=== PATIENT | male | born 1945 | race Caucasian/White ===

== ENCOUNTER 2020-12-09 02:08 | Inpatient (IN) | payer OTHER, BC, SELFPAY ==
--- NOTE | 2019-12-20 20:30 | NUR ---
Patient received in bed, sedated and ventilated. report received at bedside from Zeferino. PICC line, peripheral line and huff are patent. reviewed current orders to carry out.
[~2020-12-09] VITALS: Ht 177.8 cm; Wt 74.8 kg
--- NOTE | 2020-12-09 02:14 | NUR ---
ER at bedside examining patient.
--- NOTE | 2020-12-09 02:14 | NUR ---
Patient BIB ALS/EMS from [facility]. C/O shortness of breath x today. Per reported, patient had shortness of breath and test positive Covid -19 (unknown date), Oxygen sat 80 % RA, place mask -Non rebreather 15 L/Min -oxygen sat over 93-94 % , BS 441. A/O,X1, generalized weakness, oxygen sat 94 % with Non-rebreather 15 L/min, HR 96, RR 32.
--- NOTE | 2020-12-09 02:14 | NUR ---
Patient to ER bed 3 to gown for evaluation. Side rails up.
[2020-12-09 02:15] VITALS: BP_SYST 119
--- NOTE | 2020-12-09 02:15 | NUR ---
# 20 gauge angiocath placed to right forearm by CECILIA Vasques. Use of asceptic technique. Opsite placed over site. Blood return noted. Blood for lab drawn from site. Flushed with 10 cc of normal saline. No evidence of infiltration noted. Patient tolerated well.
--- NOTE | 2020-12-09 02:22 | NUR ---
# 16 FR Pugh catheter with use of sterile technique by CECILIA Vasques. Immediate return of 10 ml, Jayda, cloudy urine noted. Bedside drainage bag placed below level of bladder. Urine sample collected and sent to lab. Pt tolerated procedure well.
--- NOTE | 2020-12-09 02:23 | NUR ---
Swabs COVID-19 and MRSA and send to lab.
[2020-12-09 02:47] LABS: BASOPHILS % (AUTO) 0.3 % (0.0-2.0); HEMATOCRIT 39.3 % (36-54); HEMOGLOBIN 13.5 g/dL (14.0-18.0); LYMPHOCYTES # (AUTO) 0.6 K/uL (1.0-5.5); LYMPHOCYTES % (AUTO) 6.6 % (20.5-51.5); MEAN CORPUSCULAR HEMOGLOBIN 32 pg (27-31); MEAN CORPUSCULAR HGB CONC 34 % (32-36); MEAN CORPUSCULAR VOLUME 94 fL (79.0-98.0); MONOCYTES # (AUTO) 0.4 K/uL (0.0-1.0); MONOCYTES % (AUTO) 4.1 % (1.7-9.3); NEUTROPHILS # (AUTO) 7.9 K/uL (1.8-7.7); PLATELET COUNT (AUTO) 274 K/uL (130-430); WHITE BLOOD COUNT (AUTO) 8.9 K/uL (4.8-10.8)
[2020-12-09] MEDS ORDERED: INSU100V11 SQ (02:47)
[2020-12-09] MEDS ORDERED: BENA5TAB5 PO (02:47)
[2020-12-09] MEDS ORDERED: ACET325T PO (02:47)
[2020-12-09] MEDS ORDERED: SSREG SUBCUT (02:47)
[2020-12-09] MEDS ORDERED: NEU100 PO (02:47)
[2020-12-09] MEDS ORDERED: SENN8.6T19 PO (02:47)
[2020-12-09] MEDS ORDERED: ACET-73 PO (02:47)
[2020-12-09] MEDS ORDERED: MELA5TAB21 PO (02:47)
[2020-12-09] MEDS ORDERED: METF1000 PO (02:47)
[2020-12-09] MEDS ORDERED: DOCU-144 PO (02:47)
[2020-12-09] MEDS ORDERED: ASCO500T20 PO (02:47)
--- NOTE | 2020-12-09 02:48 | NUR ---
Medication reconciliation completed with information provided by facility. Any prior medication reconciliation on file was reviewed and corrected.
[2020-12-09 03:01] LABS: ANION GAP 13 (5-15); CALCIUM 9.1 mg/dL (8.4-11.0); CHLORIDE 107 mmol/L (98-107); CREATININE 1.15 mg/dL (0.55-1.30); GLUCOSE 392 mg/dL (70-99); POTASSIUM 3.4 mmol/L (3.5-5.1); SODIUM SERUM 144 mmol/L (136-145); UREA NITROGEN, BLOOD 24 mg/dL (8-21)
[2020-12-09 03:09] LABS: ALANINE AMINOTRANSFERASE 81 U/L (12-78); ALBUMIN 2.5 g/dL (3.4-4.8); ASPARTATE AMINOTRANSFERASE 64 U/L (10-37); TOTAL BILIRUBIN 0.7 mg/dL (0.0-1.0)
[2020-12-09 03:14] LABS: FIBRINOGEN 699 mg/dL (200-400)
--- NOTE | 2020-12-09 03:15 | NUR ---
Collected urine and send to lab.
[2020-12-09 03:35] LABS: BILIRUBIN,URINE NEGATIVE (NEGATIVE); BLOOD, URINE 2+ (NEGATIVE); CLARITY/URINE SL CLOUDY (CLEAR); COLOR,URINE YELLOW (YELLOW); GLUCOSE,URINE 3+ (NEGATIVE); KETONES,URINE TRACE (NEGATIVE); LEUKOCYTE ESTERASE ,URINE 1+ (NEGATIVE); NITRITE, URINE POSITIVE (NEGATIVE); PROTEIN URINE 1+ (NEGATIVE); UROBILINOGEN,URINE 0.2 (0.2-1.0)
[2020-12-09 03:36] LABS: CKMB RELATIVE INDEX 0.1 (0.0-2.9); CREATINE KINASE MB 1.2 ng/mL (0-3.6)
[2020-12-09 03:41] LABS: BACTERIA,URINE MANY /HPF (None Seen); WBC,URINE 50-80 /HPF (0-3)
[2020-12-09] MEDS ORDERED: cefTRIAXone 1 GM in D5W 50 ML IV ONE (04:15)
[2020-12-09] MEDS ORDERED: NACL 0.9% 1,000 ML IV ONE (06:00)
--- NOTE | 2020-12-09 06:07 | NUR ---
Dr. Lechuga and Nurse RN co-sign consent for CT chest with contrastm, Patient unable to sign, Patient need to hold Metformin 48 hours.
[2020-12-09] MEDS ORDERED: IOHEXOL 350 mgI/mL, 150 ML INFUS..BTL IV ONE (06:08)
--- NOTE | 2020-12-09 06:32 | NUR ---
Patient transported to radiology via gurney, accompanied by RT and RN.
[2020-12-09] MEDS ORDERED: ENOXAPARIN SODIUM 60 MG/0.6 ML SYRINGE SUBCUT ONE (07:15)
--- NOTE | 2020-12-09 07:24 | NUR ---
REPORT RECEIVED FROM CECILIA CORTES; PT RESTING COMFORTABLY IN BED; NO S/S OF DISTRESS; SAFETY PRECAUTIONS IN PLACE/MAINTAINED; WILL CONTINUE TO MONITOR; PENDING ICU BED
[2020-12-09] MEDS ORDERED: GLUCOSE (DEXTROSE) ORAL GEL -Adults PO PRN ×2 (07:30→15:30)
[2020-12-09] MEDS ORDERED: D5W 1,000 ML IV PRN ×2 (07:30→15:30)
[2020-12-09] MEDS ORDERED: DEXTROSE 50%-WATER 50 ML DISP.SYRIN IVP PRN (07:30)
--- NOTE | 2020-12-09 08:54 | NUR ---
Pt alert/confused; incontinence care provided; pt denies pain; safety precautions maintained; will continue to monitor; pending ICU bed
--- NOTE | 2020-12-09 09:33 | NUR ---
pt repositioned; no s/s of distress; safety precautions maintained; will continue to monitor; pending icu bed
--- NOTE | 2020-12-09 10:24 | NUR ---
PT RESTING COMFORTABLY; NO S/S OF DISTRESS; SAFETY PRECAUTIONS MAINTAINED; WILL CONTINUE TO MONITOR; PENDING ICU BED
--- NOTE | 2020-12-09 11:00 | NUR ---
pt sleeping; VSS
[2020-12-09] MEDS ORDERED: cefTRIAXone 1 GM VIAL ONE (11:27)
[2020-12-09] MEDS ORDERED: AZITHROMYCIN 500 MG/VIAL (ZITHROMAX) IV ONE (11:27)
[2020-12-09] MEDS: 0.45% NACL 1,000 ML IV SCH ×2 (11:43→20:35)
[2020-12-09] MEDS: AZITHROMYCIN 500 MG in NS 250 ML IV SCH (11:45)
[2020-12-09] MEDS: cefTRIAXone 1 GM in D5W 50 ML IV SCH (11:51)
[2020-12-09] MEDS: ALBUTEROL MDI INHALATION 8 GM INH INH SCH (12:00)
--- NOTE | 2020-12-09 12:07 | NUR ---
pt repositioned; no s/s of distress; safety precautions maintained; will continue to monitor; pending ICU bed
[2020-12-09] MEDS: methylPREDNISolone SOD SUCC/PF 62.5 MG/ML VIAL IVP SCH ×2 (12:12→18:54)
--- NOTE | 2020-12-09 13:00 | NUR ---
pt resting VSS
--- NOTE | 2020-12-09 14:03 | NUR ---
Reviewed ABG results with Dr. Barry & he requested that the pt be switched to HFNC @ 100% if available; if not available pt should be switched to Bipap @ 100% 11/05; RT notified; pt resting in bed; O2 sat 90% on NRB; no s/s of distress; will continue to monitor
--- NOTE | 2020-12-09 14:45 | NUR ---
UO= 1000 ML EMPTIED
--- NOTE | 2020-12-09 14:53 | NUR ---
DR PÉREZ IN TO ASSESS
--- NOTE | 2020-12-09 14:54 | NUR ---
RT SWITCH PT FROM NRB TO HHFNC WITH TEMPORARY SUPPLEMENTAL O2 VIA NRB; PT'S O2 SATS 91%; WILL CONTINUE TO MONITOR
--- NOTE | 2020-12-09 15:17 | NUR ---
pt resting; VSS
[2020-12-09] MEDS ORDERED: DEXTROSE 50% JECT 50 ML DISP.SYRIN IVP PRN (15:30)
--- NOTE | 2020-12-09 16:49 | NUR ---
pt repositioned; no s/s of distress; safety precautions maintained; will continue to monitor; pending icu bed
--- NOTE | 2020-12-09 17:35 | NUR ---
pt comfortable in bed; pt reassured; safety precautions maintained; will continue to monitor; pending ICU bed
[2020-12-09] MEDS: INSULIN REGULAR, HUMAN 100 UNITS/ML, 10 ML VIAL (humuLIN R) SUBCUT PRN (18:27)
[2020-12-09] MEDS ORDERED: INSULIN Lispro 100 UNITS/ML VIAL (humaLOG) ONE (18:38)
--- NOTE | 2020-12-09 18:46 | NUR ---
pt repositioned; no s/s of distress; safety precautions maintained; will continue to monitor; pending icu bed
--- NOTE | 2020-12-09 19:19 | NUR ---
REPORT GIVEN & CARE ENDORSED TO Micheline Lobo RN
--- NOTE | 2020-12-09 20:00 | NUR ---
PATIENT RESTING IN BED RESPONSIVE ON VERBAL. PATIENT CONFUSED. ON NASAL HIGH FLOW 100/50LITERS WITH NONREBREATHER MASK 15L. PROVIDED WITH SIPS OF WATER WITH MEDS TOLERATED. WITH ONGOING FLUID 1/2NS 75ML/HOUR.ATTENDED ALL NEEDS. FREQUENT CHECKING DONE TO MONITOR PATIENT AND ENSURED SAFETY. WILL CONTINUE TO MONITOR
[2020-12-09 20:13] VITALS: BP_SYST 127
[2020-12-09] MEDS ORDERED: ASCORBIC ACID 500 MG TABLET PO SCH (21:00)
[2020-12-09] MEDS: ENOXAPARIN SODIUM 40 MG/0.4 ML SYRINGE SUBCUT SCH (21:29)
[2020-12-09] MEDS: DOCUSATE SODIUM 100 MG CAPSULE PO SCH (21:30)
[2020-12-09] MEDS: GABAPENTIN 100 MG CAPSULE PO SCH (21:32)
[2020-12-09] MEDS: ASCORBIC ACID 500 MG TABLET PO SCH (21:33)
[2020-12-09] MEDS ORDERED: SENNOSIDES 8.6 MG TABLET ONE (21:42)
[2020-12-09 21:47] VITALS: BP_SYST 129
[2020-12-09] MEDS: SENNOSIDES 8.6 MG TABLET PO SCH (21:49)
[2020-12-09 22:35] VITALS: BP_SYST 127
[2020-12-09 23:39] VITALS: BP_SYST 130
[2020-12-10] VITALS (7 sets, daily range): BP systolic 124–136
[2020-12-10] MEDS: methylPREDNISolone SOD SUCC/PF 62.5 MG/ML VIAL IVP SCH ×4 (00:19→18:17)
[2020-12-10] MEDS: INSULIN REGULAR, HUMAN 100 UNITS/ML, 10 ML VIAL (humuLIN R) SUBCUT PRN ×6 (00:20→22:03)
[2020-12-10] MEDS: 0.45% NACL 1,000 ML IV SCH ×2 (01:00→04:10)
[2020-12-10] MEDS: ACETAMINOPHEN 650 MG SUPP.RECT RC PRN ×2 (04:06→05:07)
--- NOTE | 2020-12-10 04:21 | NUR ---
PATIENT GIVEN PARTIAL BED BATH, NOTED WITH SKIN DOSCOLORATION ON SACRAL AREA APPLIED PROTECTION. PATIENT FEBRILE MEDICATED PER JAN.STILL ON HF SAME SETTINGS. ANS SINUS TACHY 100'S ON MONITOR. WILL CONTINUE TO MONITOR
[2020-12-10 06:44] LABS: BASOPHILS % (AUTO) 0.2 % (0.0-2.0); HEMATOCRIT 38.7 % (36-54); HEMOGLOBIN 13.1 g/dL (14.0-18.0); LYMPHOCYTES # (AUTO) 0.4 K/uL (1.0-5.5); LYMPHOCYTES % (AUTO) 4.1 % (20.5-51.5); MEAN CORPUSCULAR HEMOGLOBIN 32 pg (27-31); MEAN CORPUSCULAR HGB CONC 34 % (32-36); MEAN CORPUSCULAR VOLUME 95 fL (79.0-98.0); MONOCYTES # (AUTO) 0.3 K/uL (0.0-1.0); MONOCYTES % (AUTO) 2.6 % (1.7-9.3); NEUTROPHILS # (AUTO) 9.9 K/uL (1.8-7.7); NEUTROPHILS % (AUTO) 93.1 % (40.0-70.0); PLATELET COUNT (AUTO) 350 K/uL (130-430); RED BLOOD CELL COUNT(AUTO) 4.09 MIL/uL (4.2-6.2); RED CELL DISTRIBUTION WIDTH 12.8 % (9.0-15.0); WHITE BLOOD COUNT (AUTO) 10.6 K/uL (4.8-10.8)
[2020-12-10 06:56] LABS: ANION GAP 9 (5-15); CALCIUM 8.8 mg/dL (8.4-11.0); CHLORIDE 114 mmol/L (98-107); CREATININE 1.04 mg/dL (0.55-1.30); GLUCOSE 303 mg/dL (70-99); POTASSIUM 3.5 mmol/L (3.5-5.1); SODIUM SERUM 147 mmol/L (136-145); UREA NITROGEN, BLOOD 27 mg/dL (8-21)
--- NOTE | 2020-12-10 07:20 | NUR ---
report given to matt BROOKS pt alert and oriented. denies pain Addendum: 12/10/20 at 0722 by Rogers Pickering RN patient alert and oriented to self only. still on high flow nasal cannula.
[2020-12-10] MEDS: ALBUTEROL MDI INHALATION 8 GM INH INH SCH ×3 (07:30→19:25)
--- NOTE | 2020-12-10 07:33 | NUR ---
pt resting comfortably in bed; no s/s of distress; will continue to monitor
[2020-12-10] MEDS ORDERED: INSULIN Lispro 100 UNITS/ML VIAL (humaLOG) ONE (07:49)
[2020-12-10] MEDS: FAMOTIDINE PF 20 MG/2 ML VIAL IVP SCH ×2 (09:00→21:18)
--- NOTE | 2020-12-10 09:00 | NUR ---
pt reoriented & repositioned; no s/s of distress; will continue to monitor
[2020-12-10] MEDS: DOCUSATE SODIUM 100 MG CAPSULE PO SCH ×2 (09:35→21:18)
[2020-12-10] MEDS: ASCORBIC ACID 500 MG TABLET PO SCH ×2 (09:36→21:18)
[2020-12-10] MEDS: CHOLECALCIFEROL (VITAMIN D3) 5,000 UNIT TABLET PO SCH (09:36)
[2020-12-10] MEDS: AZITHROMYCIN 500 MG in NS 250 ML IV SCH (09:37)
[2020-12-10] MEDS: cefTRIAXone 1 GM in D5W 50 ML IV SCH (09:38)
[2020-12-10] MEDS: ENOXAPARIN SODIUM 40 MG/0.4 ML SYRINGE SUBCUT SCH ×2 (09:39→21:18)
--- NOTE | 2020-12-10 12:02 | NUR ---
pt repositioned; fluids/food offered; 250 CCs emptied from huff; no s/s of distress; safety precautions maintained; will continue to monitor; pending icu bed
[2020-12-10] MEDS: lisinopriL 5 MG TABLET PO SCH (12:16)
--- NOTE | 2020-12-10 12:35 | NUR ---
SPOKE WITH DR MARIO REGARDING ABG, ORDER RECEIVED FOR BIPAP RT TO KEEP SAO2 >90
--- NOTE | 2020-12-10 12:49 | NUR ---
rt aware of changes to o2 orders and bipap if needed
--- NOTE | 2020-12-10 13:00 | NUR ---
Pt reoriented & repositioned
--- NOTE | 2020-12-10 14:34 | NUR ---
Spoke with Dr. Nicholson regarding pt's status; per Dr. Nicholson he will update the pt's orders/enter new orders for ABX coverage
--- NOTE | 2020-12-10 15:36 | NUR ---
Pt reoriented & repositioned
--- NOTE | 2020-12-10 17:49 | NUR ---
pt resting comfortably in bed; no s/s of distress; will continue to monitor
--- NOTE | 2020-12-10 18:22 | NUR ---
Dr. Nicholson paged to obtain consent for convalascent plasma from pt's next of kin/spokeperson
[2020-12-10] MEDS: PIPERACILLIN/TAZO 2.25G/DEX-IS 50 ML IV SCH (18:34)
--- NOTE | 2020-12-10 19:13 | NUR ---
Assumed care of patient at change of shift. introduced self patient, positioned for comfort and safety w/ bed to low position sr up. Currently on bipap 15/8 w/ fio2 100% pox noted at 92%. Continue to monitor. Patient resting quietly. No acute distress noted. Vital signs within normal range.
--- NOTE | 2020-12-10 19:13 | NUR ---
report given & care endorsed to CECILIA Warren
--- NOTE | 2020-12-10 21:00 | NUR ---
Patient resting quietly. No acute distress noted. Vital signs within normal range. Medicated as ordered. Will observe for any adverse reaction. No change in bipap settings. Continue to monitor
[2020-12-10] MEDS: GABAPENTIN 100 MG CAPSULE PO SCH (21:18)
[2020-12-10] MEDS: SENNOSIDES 8.6 MG TABLET PO SCH (21:18)
--- NOTE | 2020-12-11 01:00 | NUR ---
Patient resting quietly. No acute distress noted. Vital signs within normal range. Changed iv fluid bag, iv site patent and intact. continue to monitor. Will observe for any adverse reaction. No change in bipap settings. Continue to monitor
[2020-12-11] MEDS: methylPREDNISolone SOD SUCC/PF 62.5 MG/ML VIAL IVP SCH ×4 (01:42→18:01)
[2020-12-11] MEDS: PIPERACILLIN/TAZO 2.25G/DEX-IS 50 ML IV SCH ×4 (01:42→17:56)
--- NOTE | 2020-12-11 03:00 | NUR ---
Patient resting quietly. No acute distress noted. Vital signs within normal range. no change in bipap settings. continue to monitor.
[2020-12-11] MEDS ORDERED: LORazepam 2 MG/ML VIAL IVP ONE (03:15)
--- NOTE | 2020-12-11 05:35 | NUR ---
Patient resting quietly. No acute distress noted. Vital signs within normal range. No change in bipap settings, patient asleep resting comfortably at this time after being medicated w/ ativan 2mg ivp as ordered (patient continued to removed bipap mask). No adverse reaction noted. patient pox at 90-92% on fio2 100%. continue to monitor.
[2020-12-11] MEDS: INSULIN REGULAR, HUMAN 100 UNITS/ML, 10 ML VIAL (humuLIN R) SUBCUT PRN ×3 (05:57→18:02)
--- NOTE | 2020-12-11 06:00 | NUR ---
patient medicated as ordered w/ 10 units insulin sq 2nd to acck noted at 366. continue ot monitor.
[2020-12-11] MEDS: ALBUTEROL MDI INHALATION 8 GM INH INH SCH ×2 (07:20→14:45)
--- NOTE | 2020-12-11 07:32 | NUR ---
Report received from CECILIA Warren; pt sleeping; no s/s of distress; VSS; will continue to monitor
[2020-12-11 08:16] LABS: BASOPHILS % (AUTO) 0.2 % (0.0-2.0); HEMATOCRIT 37.6 % (36-54); HEMOGLOBIN 12.5 g/dL (14.0-18.0); LYMPHOCYTES # (AUTO) 0.7 K/uL (1.0-5.5); LYMPHOCYTES % (AUTO) 4.8 % (20.5-51.5); MEAN CORPUSCULAR HEMOGLOBIN 32 pg (27-31); MEAN CORPUSCULAR HGB CONC 33 % (32-36); MEAN CORPUSCULAR VOLUME 95 fL (79.0-98.0); MONOCYTES # (AUTO) 0.4 K/uL (0.0-1.0); MONOCYTES % (AUTO) 2.7 % (1.7-9.3); NEUTROPHILS # (AUTO) 12.9 K/uL (1.8-7.7); NEUTROPHILS % (AUTO) 92.3 % (40.0-70.0); PLATELET COUNT (AUTO) 385 K/uL (130-430); RED BLOOD CELL COUNT(AUTO) 3.95 MIL/uL (4.2-6.2); RED CELL DISTRIBUTION WIDTH 12.9 % (9.0-15.0)
--- NOTE | 2020-12-11 08:19 | NUR ---
Pt offered water with medications; no s/s of distress; will continue to monitor
[2020-12-11] MEDS: FAMOTIDINE PF 20 MG/2 ML VIAL IVP SCH ×2 (08:26→20:53)
[2020-12-11] MEDS: ENOXAPARIN SODIUM 40 MG/0.4 ML SYRINGE SUBCUT SCH ×2 (08:26→21:00)
[2020-12-11] MEDS: DOCUSATE SODIUM 100 MG CAPSULE PO SCH ×2 (08:26→21:00)
[2020-12-11] MEDS: ASCORBIC ACID 500 MG TABLET PO SCH ×2 (08:27→20:53)
[2020-12-11] MEDS: CHOLECALCIFEROL (VITAMIN D3) 5,000 UNIT TABLET PO SCH (08:27)
[2020-12-11] MEDS: AZITHROMYCIN 500 MG in NS 250 ML IV SCH (08:28)
[2020-12-11] MEDS: lisinopriL 5 MG TABLET PO SCH (08:28)
[2020-12-11 08:43] LABS: ALANINE AMINOTRANSFERASE 109 U/L (12-78); ALBUMIN 2.1 g/dL (3.4-4.8); ANION GAP 13 (5-15); ASPARTATE AMINOTRANSFERASE 74 U/L (10-37); CALCIUM 9.2 mg/dL (8.4-11.0); CHLORIDE 115 mmol/L (98-107); CREATININE 0.92 mg/dL (0.55-1.30); GLUCOSE 353 mg/dL (70-99); POTASSIUM 3.5 mmol/L (3.5-5.1); SODIUM SERUM 150 mmol/L (136-145); TOTAL BILIRUBIN 0.7 mg/dL (0.0-1.0); UREA NITROGEN, BLOOD 32 mg/dL (8-21)
--- NOTE | 2020-12-11 09:20 | NUR ---
pt sleeping; pt repositioned; no s/s of distress; safety precautions maintained; will continue to monitor; pending icu bed
--- NOTE | 2020-12-11 09:36 | NUR ---
Nutrition Update South Scale 14 noted. Pt admitted for acute respiratory failure. Diet: cardiac BMI: 25 kg/m2 RD to follow per nutrition care standards.
--- NOTE | 2020-12-11 09:45 | NUR ---
Hygeine care provided; complete bath, oral care, & total bed/linen change; pt tolerated well; will continue to monitor
--- NOTE | 2020-12-11 10:30 | NUR ---
Pt had an episode of desating to 60% & HR 40s; pt recovered and now sats are 88-89%; Dr. Barry paged to notify and to provide recent ABG results; waiting for call back; will continue to monitor
--- NOTE | 2020-12-11 11:30 | NUR ---
Updated Dr. Barry regarding pt's status; Bipap orders updated & settings changed by RT; pt tolerated well & sats now 90 - 91% Addendum: 12/11/20 at [email or web address] Barry advised that he will discuss Code status & Convaslecent plasma tx with daughter for consent
[2020-12-11] MEDS: 0.45% NACL 1,000 ML IV SCH (11:38)
--- NOTE | 2020-12-11 12:09 | NUR ---
Dietitian Recommendations * Recommend NPO * Consider alternative nutrition support within 1-2 days * If PO diet is indicated, consider CCHO, cardiac diet w/ Glucerna BID (ONS provides 440 kcal/day, 20 gm protein/day) OLMAN ARANDA Please refer to Nutrition Assessment for details. Addendum: 12/11/20 at [address]10 [address] Nuñez RD Amended: Links added. Addendum: 12/11/20 at 1254 by [address] Nuñez RD CORRECTION: Dietitian Recommendations * Recommend NPO * Consider alternative nutrition support within 1-2 days * If PO diet is indicated, consider CCHO, cardiac diet w/ Glucerna BID (ONS provides 440 kcal/day, 20 gm protein/day) * military source operations specialist consult OLMAN ARANDA
--- NOTE | 2020-12-11 12:10 | NUR ---
pt repositioned; no s/s of distress; safety precautions maintained; will continue to monitor; pending icu bed
--- NOTE | 2020-12-11 15:43 | NUR ---
Pt reoriented & repositioned
--- NOTE | 2020-12-11 16:43 | NUR ---
pt sleeping/resting comfortably in bed; VSS (O2 sat 90%) no s/s of distress; will continue to monitor
[2020-12-11] MEDS ORDERED: MELATONIN 3 MG TABLET PO PRN (17:30)
--- NOTE | 2020-12-11 18:17 | NUR ---
Pt restless; Pt reoriented & repositioned; VSS; will continue to monitor
[2020-12-11] MEDS ORDERED: INSULIN Lispro 100 UNITS/ML VIAL (humaLOG) ONE (18:22)
[2020-12-11 19:00] VITALS: BP_SYST 118
--- NOTE | 2020-12-11 19:15 | NUR ---
1914 REPORT RECEIVED FROM OFF-GOING NURSE. PT ALERT BUT REMAINS CONFUSED, REPORTEDLY AT BASELINE. AFEBRILE. FIDGETS WITH BIPAP BUT SOMEWHAT REDIRECTABLE. FULL FACE BIPAP AT 100% WITH 16/8, SATTING 90%.
[2020-12-11 20:00] VITALS: BP_SYST 117
[2020-12-11] MEDS: SENNOSIDES 8.6 MG TABLET PO SCH (20:52)
[2020-12-11 21:00] VITALS: BP_SYST 127
[2020-12-11] MEDS: GABAPENTIN 100 MG CAPSULE PO SCH (21:00)
[2020-12-11 22:00] VITALS: BP_SYST 114
[2020-12-11 23:00] VITALS: BP_SYST 121
[2020-12-12] VITALS (8 sets, daily range): BP systolic 112–135
--- NOTE | 2020-12-12 | NUR ---
TOLERATES WATER WITHOUT DIFFICULTY. HAS REMAINED ON FULL FACE BIPAP THROUGH THE SHIFT. INTERMITTENT PERIODS OF RESTLESSNESS. HAVE MULTIPLE EPISODES OF BRADYCARDIA, WITH RETURN TO BASELINE. BLOOD PRESSURE AND OXYGEN SATS TOLERATED HR, WHICH QUICKLY RETURNED TO BASELINE.
[2020-12-12] MEDS: 0.45% NACL 1,000 ML IV SCH (02:00)
[2020-12-12] MEDS ORDERED: INSULIN REGULAR, HUMAN 10 UNITS/0.1 ML INJ ONE ×2 (02:25→05:18)
--- NOTE | 2020-12-12 04:00 | NUR ---
RESTING QUIETLY AT PRESENT. CONTINUES TO BE ON FULL FACE BIPAP, SATTING 94% WHILE SLEEPING.
[2020-12-12] MEDS: methylPREDNISolone SOD SUCC/PF 62.5 MG/ML VIAL IVP SCH ×5 (05:20→23:30)
[2020-12-12] MEDS: PIPERACILLIN/TAZO 2.25G/DEX-IS 50 ML IV SCH ×5 (05:20→23:28)
[2020-12-12] MEDS: INSULIN REGULAR, HUMAN 100 UNITS/ML, 10 ML VIAL (humuLIN R) SUBCUT PRN ×4 (07:00→23:42)
--- NOTE | 2020-12-12 07:15 | NUR ---
signed out to oncoming nurse; sugey
--- NOTE | 2020-12-12 07:22 | NUR ---
Report received from CECILIA Guerra. Pt resting comfortably in bed, VSS, no s/s of distress; will continue to monitor
[2020-12-12 07:26] LABS: BASOPHILS % (AUTO) 0.2 % (0.0-2.0); HEMATOCRIT 38.4 % (36-54); HEMOGLOBIN 12.9 g/dL (14.0-18.0); LYMPHOCYTES # (AUTO) 0.5 K/uL (1.0-5.5); LYMPHOCYTES % (AUTO) 3.5 % (20.5-51.5); MEAN CORPUSCULAR HEMOGLOBIN 32 pg (27-31); MEAN CORPUSCULAR HGB CONC 34 % (32-36); MEAN CORPUSCULAR VOLUME 95 fL (79.0-98.0); MONOCYTES # (AUTO) 0.3 K/uL (0.0-1.0); MONOCYTES % (AUTO) 2.1 % (1.7-9.3); NEUTROPHILS # (AUTO) 12.7 K/uL (1.8-7.7); NEUTROPHILS % (AUTO) 94.2 % (40.0-70.0); PLATELET COUNT (AUTO) 401 K/uL (130-430); RED BLOOD CELL COUNT(AUTO) 4.04 MIL/uL (4.2-6.2); RED CELL DISTRIBUTION WIDTH 12.8 % (9.0-15.0); WHITE BLOOD COUNT (AUTO) 13.5 K/uL (4.8-10.8)
[2020-12-12 07:42] LABS: ALANINE AMINOTRANSFERASE 103 U/L (12-78); ALBUMIN 2.1 g/dL (3.4-4.8); ANION GAP 10 (5-15); ASPARTATE AMINOTRANSFERASE 50 U/L (10-37); CALCIUM 9.3 mg/dL (8.4-11.0); CHLORIDE 118 mmol/L (98-107); CREATININE 0.91 mg/dL (0.55-1.30); GLUCOSE 292 mg/dL (70-99); POTASSIUM 3.1 mmol/L (3.5-5.1); SODIUM SERUM 153 mmol/L (136-145); TOTAL BILIRUBIN 0.7 mg/dL (0.0-1.0); UREA NITROGEN, BLOOD 29 mg/dL (8-21)
[2020-12-12] MEDS: FAMOTIDINE PF 20 MG/2 ML VIAL IVP SCH ×2 (07:53→20:58)
[2020-12-12] MEDS: ENOXAPARIN SODIUM 40 MG/0.4 ML SYRINGE SUBCUT SCH ×2 (07:54→20:58)
[2020-12-12] MEDS: ASCORBIC ACID 500 MG TABLET PO SCH ×2 (07:56→20:57)
[2020-12-12] MEDS: lisinopriL 5 MG TABLET PO SCH (07:56)
[2020-12-12] MEDS: DOCUSATE SODIUM 100 MG CAPSULE PO SCH ×2 (07:56→20:57)
[2020-12-12] MEDS: CHOLECALCIFEROL (VITAMIN D3) 5,000 UNIT TABLET PO SCH (07:57)
[2020-12-12] MEDS: ALBUTEROL MDI INHALATION 8 GM INH INH SCH ×3 (08:08→18:53)
--- NOTE | 2020-12-12 08:11 | NUR ---
Pt repositioned & reoriented; safety precautions maintained; will continue to monitor; pending ICU bed
--- NOTE | 2020-12-12 09:16 | NUR ---
Dr. Barry updated on pt's status & notified of ABG results; PO2 47; Dr. Barry requested ED physician evalaute pt for possible intubation; Dr. Willoughby @ bedside advised that we will continue to monitor & she will notify pt's daughter to confirm code status
--- NOTE | 2020-12-12 09:30 | NUR ---
Dr. Willoughby attempted to call pt's daughter to discuss code status & consent for convalascent plasma; no answer/Dr. Willoughby [facility]
[2020-12-12] MEDS: AZITHROMYCIN 500 MG in NS 250 ML IV SCH (09:42)
--- NOTE | 2020-12-12 10:43 | NUR ---
pt sleeping; no s/s of acute distress
--- NOTE | 2020-12-12 13:08 | NUR ---
Pt reoriented & repositioned
[2020-12-12] MEDS ORDERED: INSULIN GLARGINE 100 UNITS/ML 10 ML VIAL SUBCUT ONE (14:00)
[2020-12-12] MEDS ORDERED: POTASSIUM CHLORIDE 20 MEQ TAB.PRT.SR PO ONE (15:00)
--- NOTE | 2020-12-12 15:22 | NUR ---
Pt sleeping; VSS
[2020-12-12] MEDS ORDERED: INSULIN Lispro 100 UNITS/ML VIAL (humaLOG) ONE (16:25)
[2020-12-12] MEDS: KCL 20 mEq in D5W 1000 mL 1,000 ML IV SCH (16:27)
--- NOTE | 2020-12-12 19:00 | NUR ---
RECEIVED REPORT FROM CECILIA DENIS. PT IN BED AWAKE. ABLE TO FOLLOW SIMPLE COMMANDS. ON BIPAP, TOLERATING AT THIS TIME. V/S STABLE. AFEBRILE. NO S/S OF ACUTE CARDIAC OR RESP DISTRESS NOTED. BEDREST. ALL EXTREMITIES ELEVATED & OFFLOADED. GENERALIZED SCATTERED ECCYMOSIS NOTED. SKIN COMPLEXION WNL. W/NOGUERA CATH TO GRAVITY, SECURED TO LEG & PATENT. WILL REPOSITION Q2H/PRN. SAFETY MEASURES & INTEGRITY MAINTAINED. WILL CONTINUE TO MONITOR.
--- NOTE | 2020-12-12 19:20 | NUR ---
Report given & care endorsed to [place] RN
--- NOTE | 2020-12-12 19:27 | NUR ---
700 CCs urine emptied
[2020-12-12] MEDS: GABAPENTIN 100 MG CAPSULE PO SCH (20:57)
[2020-12-12] MEDS: SENNOSIDES 8.6 MG TABLET PO SCH (20:58)
[2020-12-12] MEDS ORDERED: INSULIN NPH/REGULAR 70-30, 100 UNITS/ML, 10 ML VIAL ONE (23:42)
--- NOTE | 2020-12-13 | NUR ---
PT STABLE. NO S/S OF ACUTE DISTRESS NOTED. V/S STABLE. AFEBRILE. DENIES ANY PAIN AT THIS TIME. SAFETY MEASURES & INTEGRITY MAINTAINED. MONITORING CONTINOUSLY.
[2020-12-13] MEDS: ALBUTEROL MDI INHALATION 8 GM INH INH SCH ×7 (01:43→22:34)
--- NOTE | 2020-12-13 02:00 | NUR ---
PT STABLE. NO S/S OF ACUTE DISTRESS NOTED. RESTING IN BED AT THIS TIME. V/S STABLE. DENIES ANY PAIN. SAFETY MEASURES & INTEGRITY MAINTAINED. WILL CONTINUE TO MONITOR.
[2020-12-13] MEDS: KCL 20 mEq in D5W 1000 mL 1,000 ML IV SCH ×2 (03:24→13:15)
[2020-12-13 05:36] LABS: ALANINE AMINOTRANSFERASE 77 U/L (12-78); ANION GAP 6 (5-15); ASPARTATE AMINOTRANSFERASE 30 U/L (10-37); CALCIUM 9.2 mg/dL (8.4-11.0); CHLORIDE 119 mmol/L (98-107); CREATININE 0.89 mg/dL (0.55-1.30); GLUCOSE 300 mg/dL (70-99); POTASSIUM 3.6 mmol/L (3.5-5.1); SODIUM SERUM 155 mmol/L (136-145); TOTAL BILIRUBIN 0.6 mg/dL (0.0-1.0); UREA NITROGEN, BLOOD 24 mg/dL (8-21)
[2020-12-13 05:51] LABS: BASOPHILS % (AUTO) 0.2 % (0.0-2.0); HEMATOCRIT 38.6 % (36-54); LYMPHOCYTES # (AUTO) 0.3 K/uL (1.0-5.5); LYMPHOCYTES % (AUTO) 2.2 % (20.5-51.5); MEAN CORPUSCULAR HEMOGLOBIN 32 pg (27-31); MEAN CORPUSCULAR HGB CONC 34 % (32-36); MEAN CORPUSCULAR VOLUME 95 fL (79.0-98.0); MONOCYTES # (AUTO) 0.3 K/uL (0.0-1.0); MONOCYTES % (AUTO) 2.3 % (1.7-9.3); NEUTROPHILS # (AUTO) 11.7 K/uL (1.8-7.7); NEUTROPHILS % (AUTO) 95.3 % (40.0-70.0); PLATELET COUNT (AUTO) 393 K/uL (130-430); RED BLOOD CELL COUNT(AUTO) 4.07 MIL/uL (4.2-6.2); WHITE BLOOD COUNT (AUTO) 12.3 K/uL (4.8-10.8)
[2020-12-13] MEDS ORDERED: PIPERACILLIN/TAZOBACTAM 2.25 GM VIAL IV ONE (05:56)
--- NOTE | 2020-12-13 06:00 | NUR ---
PT STABLE. NO S/S OF DISTRESS NOTED. V/S STABLE. SAFETY MEASURES & INTEGRITY MAINTAINED. WILL CONTINUE TO MONITOR.
[2020-12-13] MEDS: INSULIN REGULAR, HUMAN 100 UNITS/ML, 10 ML VIAL (humuLIN R) SUBCUT PRN ×4 (06:18→23:35)
[2020-12-13] MEDS ORDERED: INSULIN REGULAR, HUMAN 10 UNITS/0.1 ML INJ ONE ×2 (06:18→23:31)
[2020-12-13] MEDS: PIPERACILLIN/TAZO 2.25G/DEX-IS 50 ML IV SCH ×4 (06:21→23:33)
[2020-12-13] MEDS: methylPREDNISolone SOD SUCC/PF 62.5 MG/ML VIAL IVP SCH ×4 (06:22→23:29)
--- NOTE | 2020-12-13 06:30 | NUR ---
NOGUERA CATH EMPTIED. 1200 URINE OUTPUT NOTED.
--- NOTE | 2020-12-13 07:15 | NUR ---
REPORT GIVEN TO CHAPARRITA RN FOR CONTINUITY OF CARE. LEFT PT IN STABLE CONDITION.
--- NOTE | 2020-12-13 07:36 | NUR ---
Pt resting comfortably in bed; no s/s of distress; VSS; safety precautions maintained; will continue to monitor
[2020-12-13] MEDS ORDERED: INSULIN GLARGINE 100 UNITS/ML 10 ML VIAL ONE (07:58)
[2020-12-13] MEDS: FAMOTIDINE PF 20 MG/2 ML VIAL IVP SCH ×2 (08:12→21:20)
[2020-12-13] MEDS: lisinopriL 5 MG TABLET PO SCH (08:13)
[2020-12-13] MEDS: ASCORBIC ACID 500 MG TABLET PO SCH ×2 (08:14→21:00)
[2020-12-13] MEDS: DOCUSATE SODIUM 100 MG CAPSULE PO SCH ×2 (08:14→21:00)
[2020-12-13] MEDS: CHOLECALCIFEROL (VITAMIN D3) 5,000 UNIT TABLET PO SCH (08:15)
[2020-12-13] MEDS: INSULIN GLARGINE 100 UNITS/ML 10 ML VIAL SUBCUT SCH (08:16)
[2020-12-13] MEDS: ENOXAPARIN SODIUM 40 MG/0.4 ML SYRINGE SUBCUT SCH ×2 (08:16→21:20)
--- NOTE | 2020-12-13 08:34 | NUR ---
Fluids offered; pt repositioned; VSS, pt reoriented & reassured; safety precautions maintained; will continue to monitor
--- NOTE | 2020-12-13 08:51 | NUR ---
Pt's HR 40s-50s; Dr. Coombs notified; no new orders advised to continue to monitor & call back if pt becomes hypotensive
--- NOTE | 2020-12-13 11:19 | NUR ---
PT RESTING COMFORTABLY; NO S/S OF DISTRESS; SAFETY PRECAUTIONS MAINTAINED; WILL CONTINUE TO MONITOR; PENDING ICU BED
--- NOTE | 2020-12-13 12:24 | NUR ---
resting comfortable, tolerating bipap. nsr on monitor no ectopy
--- NOTE | 2020-12-13 13:00 | NUR ---
pt repositioned & reoriented; VSS
--- NOTE | 2020-12-13 14:12 | NUR ---
pt sleeping, VSS
--- NOTE | 2020-12-13 15:30 | NUR ---
pt repositioned/turned; oral care provided; VSS
--- NOTE | 2020-12-13 16:45 | NUR ---
pt sleeping, VSS
--- NOTE | 2020-12-13 18:03 | NUR ---
Pt repositioned; 750 CCs of urine emptied from pt's huff; safety precautions maintained; VSS; WCTM; pending ICU bed
--- NOTE | 2020-12-13 19:18 | NUR ---
Received report from CECILIA Hassan.
--- NOTE | 2020-12-13 19:40 | NUR ---
RT at bedside for re-check Bipap setting.
[2020-12-13] MEDS: GABAPENTIN 100 MG CAPSULE PO SCH (21:00)
[2020-12-13] MEDS: SENNOSIDES 8.6 MG TABLET PO SCH (21:00)
[2020-12-13] MEDS ORDERED: FAMOTIDINE PF 20 MG/2 ML VIAL ONE (21:11)
--- NOTE | 2020-12-13 21:21 | NUR ---
Provided water for patient and re-position.
--- NOTE | 2020-12-13 22:27 | NUR ---
Patient resting quietly. No acute distress noted.
--- NOTE | 2020-12-13 22:46 | NUR ---
Patient removed Bipap, placed it back and re-check Oxygen sat
--- NOTE | 2020-12-14 00:12 | NUR ---
Patient sleeping, Oxygen sat 81-87 % with Bipap.
[2020-12-14] MEDS: KCL 20 mEq in D5W 1000 mL 1,000 ML IV SCH ×2 (01:01→16:47)
--- NOTE | 2020-12-14 01:01 | NUR ---
Provided water as request and re-position.
--- NOTE | 2020-12-14 02:14 | NUR ---
Provided water as request and cleaned his facial with warm towel.
--- NOTE | 2020-12-14 04:32 | NUR ---
Patient resting quietly. No acute distress noted. Oxygen sat 81-88 % with Bipap.
[2020-12-14] MEDS: methylPREDNISolone SOD SUCC/PF 62.5 MG/ML VIAL IVP SCH ×4 (05:47→23:11)
[2020-12-14] MEDS: PIPERACILLIN/TAZO 2.25G/DEX-IS 50 ML IV SCH ×4 (05:48→23:11)
--- NOTE | 2020-12-14 05:49 | NUR ---
CXR at bedside,
[2020-12-14] MEDS: ALBUTEROL MDI INHALATION 8 GM INH INH SCH ×4 (05:58→19:59)
[2020-12-14] MEDS ORDERED: INSULIN REGULAR, HUMAN 10 UNITS/0.1 ML INJ ONE ×2 (05:59→23:13)
[2020-12-14] MEDS: INSULIN REGULAR, HUMAN 100 UNITS/ML, 10 ML VIAL (humuLIN R) SUBCUT PRN ×2 (06:00→23:13)
--- NOTE | 2020-12-14 06:00 | NUR ---
BS 279, Insulin R 6 unit given as protocol, provided water for patient.
--- NOTE | 2020-12-14 06:04 | NUR ---
Empty urine bag - Jayda, clear 900 ML
--- NOTE | 2020-12-14 07:30 | NUR ---
Given report and endorse care to CECILIA Pham.
--- NOTE | 2020-12-14 08:00 | NUR ---
PT RESTING IN BED; BIPAP AT 100%; TACHYPNEA AND LABORED BREATHING NOTED. SATURATIONS MAINTAINED BETWEEN 82-86%; HOB ELEVATED FOR COMFORT. WILL CONTINUE TO MONITOR.
[2020-12-14] MEDS: ASCORBIC ACID 500 MG TABLET PO SCH ×2 (08:52→20:23)
[2020-12-14] MEDS: lisinopriL 5 MG TABLET PO SCH (08:53)
[2020-12-14] MEDS: CHOLECALCIFEROL (VITAMIN D3) 5,000 UNIT TABLET PO SCH (08:53)
[2020-12-14] MEDS: DOCUSATE SODIUM 100 MG CAPSULE PO SCH ×2 (08:54→20:23)
[2020-12-14] MEDS: INSULIN GLARGINE 100 UNITS/ML 10 ML VIAL SUBCUT SCH ×2 (09:00→09:12)
[2020-12-14] MEDS: ENOXAPARIN SODIUM 40 MG/0.4 ML SYRINGE SUBCUT SCH ×2 (09:11→20:24)
[2020-12-14] MEDS: FAMOTIDINE PF 20 MG/2 ML VIAL IVP SCH ×2 (09:14→20:23)
[2020-12-14] MEDS ORDERED: DEXAMETHASONE SOD PHOSPHATE 4 MG/ML VIAL ONE (09:24)
--- NOTE | 2020-12-14 12:31 | NUR ---
PT GIVEN WATER AND COUGHED ALONG WITH DESATURATIONS TO THE 78-80%. DR. PÉREZ MADE AWARE; MAINTAIN NPO STATUS; SPEECH SWALLOW EVAL PENDING.
--- NOTE | 2020-12-14 15:01 | NUR ---
DR. PÉREZ AT BEDSIDE EVAULUATING PATIENT AT BEDSIDE. UPDATED WITH CURRENT CLINICAL CONDITION.
--- NOTE | 2020-12-14 15:01 | NUR ---
PT TOOK OFF MASK AT DESATURATED IN THE 20'S; BIPAP PLACED ON AND RECOVERED. WILL CONTINUE TO MONITOR.
[2020-12-14 15:20] LABS: INR 1.3 (0.80-1.20); PROTHROMBIN TIME 12.8 SECS (9.5-12.5)
--- NOTE | 2020-12-14 16:05 | NUR ---
Request for transfer sent to [facility] [phone]
--- NOTE | 2020-12-14 18:08 | NUR ---
PT RESTING IN BED; NO ACUTE DISTRESS NOTED. NPO MAINTAINED FOR ASPIRATION PRECAUTION ; PENDING PICC LINE
--- NOTE | 2020-12-14 19:00 | NUR ---
RECEIVED REPORT FROM CECILIA SMITH. PT IN BED, RESTING. AAOX2. CONFUSED W/HX OF DEMENTIA. NO S/S OF CARDIAC OR RESP DISTRESS NOTED. ON BIPAP, TOLERATING SETTINGS AT THIS TIME. SATURATION 92%. V/S STABLE. AFEBRILE. ABLE TO TAYLOR. ABLE TO FOLLOW COMMANDS. INCONTIENT OF B/B. SKIN INTACT. W/NOGUERA CATH TO GRAVITY, SECURED TO LEG, & PATENT. WILL REPOSITION Q2H/PRN FOR SKIN INTEGRITY. ALL EXTREMITIES ELEVATED & OFFLOADED. CAREPLAN REVIEWED. SAFETY MEASURES & INTEGRITY MAINTAINED. WILL CONTINUE TO MONITOR.
--- NOTE | 2020-12-14 19:00 | NUR ---
NOGUERA CATH EMPTIED 900 UP
[2020-12-14] MEDS ORDERED: FAMOTIDINE PF 20 MG/2 ML VIAL ONE (20:23)
[2020-12-14] MEDS: GABAPENTIN 100 MG CAPSULE PO SCH (20:24)
--- NOTE | 2020-12-14 20:30 | NUR ---
TOOK OF BIPAP TO GIVE PT MEDS, PT DESATED DOWN TO 60'S. MD AWARE. PT REMAIN NPO AT THIS TIME. UNABLE TO TOLERATE PO. PENDING SWALLOW EVAL. WILL CONTINUE TO MONITOR.
[2020-12-14] MEDS: SENNOSIDES 8.6 MG TABLET PO SCH (20:40)
--- NOTE | 2020-12-14 22:00 | NUR ---
PT STABLE. NO ACUTE S/S OF RESP OR CARDIAC DISTRESS. RESTING IN BED AT THIS TIME. DENIES ANY PAIN. SAFETY MEASURES & INTEGRITY MAINTAINED. WILL CONTINUE TO MONITOR.
--- NOTE | 2020-12-15 | NUR ---
NO CHANGE FROM SHIFT ASSESSMENT. PT STABLE. NO S/S OF ACUTE RESP OR RESP DISTRESS NOTED. V/S STABLE. WITH LOW GRADE FEVER. COOLING MEASURES APPLIED. MONITORING CONTINUOUSLY.
--- NOTE | 2020-12-15 04:00 | NUR ---
NO CHANGE FROM SHIFT ASSESSMENT. AFEBRILE. NO S/S OF ACUTE RESP OR CARDIAC DISTRESS NOTED. V/S STABLE. SAFETY MEASURES & INTEGRITY MAINTAINED. MONITORING CONTINUOUSLY.
[2020-12-15 04:46] LABS: BASOPHILS # (AUTO) 0.2 K/uL (0.0-0.2); BASOPHILS % (AUTO) 1.3 % (0.0-2.0); EOSINOPHILS # (AUTO) 0.1 K/uL (0.0-0.4); EOSINOPHILS % (AUTO) 0.4 % (0.0-4.0); HEMATOCRIT 42.4 % (36-54); LYMPHOCYTES # (AUTO) 0.7 K/uL (1.0-5.5); LYMPHOCYTES % (AUTO) 4.6 % (20.5-51.5); MEAN CORPUSCULAR HEMOGLOBIN 31 pg (27-31); MEAN CORPUSCULAR HGB CONC 33 % (32-36); MEAN CORPUSCULAR VOLUME 95 fL (79.0-98.0); MONOCYTES # (AUTO) 0.1 K/uL (0.0-1.0); MONOCYTES % (AUTO) 0.4 % (1.7-9.3); NEUTROPHILS # (AUTO) 14.1 K/uL (1.8-7.7); NEUTROPHILS % (AUTO) 93.3 % (40.0-70.0); PLATELET COUNT (AUTO) 320 K/uL (130-430); RED BLOOD CELL COUNT(AUTO) 4.48 MIL/uL (4.2-6.2); WHITE BLOOD COUNT (AUTO) 15.2 K/uL (4.8-10.8)
[2020-12-15] MEDS: methylPREDNISolone SOD SUCC/PF 62.5 MG/ML VIAL IVP SCH ×4 (05:03→23:54)
[2020-12-15] MEDS: PIPERACILLIN/TAZO 2.25G/DEX-IS 50 ML IV SCH ×4 (05:03→23:54)
[2020-12-15 05:05] LABS: ALANINE AMINOTRANSFERASE 53 U/L (12-78); ALBUMIN 1.8 g/dL (3.4-4.8); ANION GAP 9 (5-15); ASPARTATE AMINOTRANSFERASE 25 U/L (10-37); CALCIUM 8.7 mg/dL (8.4-11.0); CHLORIDE 117 mmol/L (98-107); GLUCOSE 255 mg/dL (70-99); PHOSPHORUS 2.3 mg/dL (2.7-4.5); POTASSIUM 3.8 mmol/L (3.5-5.1); SODIUM SERUM 153 mmol/L (136-145); TOTAL BILIRUBIN 0.7 mg/dL (0.0-1.0); UREA NITROGEN, BLOOD 21 mg/dL (8-21)
[2020-12-15] MEDS ORDERED: INSULIN REGULAR, HUMAN 10 UNITS/0.1 ML INJ ONE (05:11)
[2020-12-15] MEDS: INSULIN REGULAR, HUMAN 100 UNITS/ML, 10 ML VIAL (humuLIN R) SUBCUT PRN ×4 (05:13→23:59)
--- NOTE | 2020-12-15 06:30 | NUR ---
NOGUERA CATH EMPTIED 500 UP
--- NOTE | 2020-12-15 07:00 | NUR ---
REPORT GIVEN TO SARAH RN FOR CONTINUITY OF CARE. LEFT PT IN STABLE CONDITION.
[2020-12-15] MEDS: KCL 20 mEq in D5W 1000 mL 1,000 ML IV SCH ×2 (08:45→21:49)
[2020-12-15] MEDS: CHOLECALCIFEROL (VITAMIN D3) 5,000 UNIT TABLET PO SCH (08:46)
[2020-12-15] MEDS: ASCORBIC ACID 500 MG TABLET PO SCH ×2 (08:46→20:19)
[2020-12-15] MEDS: FAMOTIDINE PF 20 MG/2 ML VIAL IVP SCH ×2 (08:48→20:19)
[2020-12-15] MEDS: DOCUSATE SODIUM 100 MG CAPSULE PO SCH ×2 (08:48→20:19)
[2020-12-15] MEDS: lisinopriL 5 MG TABLET PO SCH (08:48)
--- NOTE | 2020-12-15 08:49 | NUR ---
PT RECEIVED; NO ACUTE DISTRESS NOTED. ON BIPAP FIO2 100% SATURATING 85-88%; REPOSITION FOR COMFORT
[2020-12-15] MEDS ORDERED: INSULIN GLARGINE 100 UNITS/ML 10 ML VIAL ONE (09:00)
[2020-12-15] MEDS: INSULIN GLARGINE 100 UNITS/ML 10 ML VIAL SUBCUT SCH (09:30)
[2020-12-15] MEDS: ENOXAPARIN SODIUM 40 MG/0.4 ML SYRINGE SUBCUT SCH ×2 (10:02→20:27)
--- NOTE | 2020-12-15 11:27 | NUR ---
PT REPOSITIONED FOR COMFORT. NPO MAINTAINED RISK FOR ASPIRATION; PENDING SWALLOW EVALUATION; PENDING PICC LINE (CALL PLACED OUT AGAIN TODAY); SATURATIONS MAINTAINED BETWEEN 85-87%; NO CHANGES FROM PREVIOUS BASELINE
[2020-12-15] MEDS: ALBUTEROL MDI INHALATION 8 GM INH INH SCH (12:00)
[2020-12-15 15:18] VITALS: BP_SYST 105
--- NOTE | 2020-12-15 17:12 | NUR ---
S.T. SWALLOW EVAL ATTEMPTED SWALLOW EVAL ATTEMPTED. NURSE SARAH PRESENT. PT DESATS TO 22 WHEN PT IS CHANGED FROM BIPAP TO NON-REBREATHER. PT IS NOT A CANDIDATE FOR SWALLOW EVAL AT THIS TIME. PLEASE CANCEL ORDER AND RE-ORDER WHEN RESP STATUS IMPROVES. NURSE SARAH CONCURRED.
--- NOTE | 2020-12-15 17:23 | NUR ---
PT CHLORHEXADINE BATHED; SPEECH THERAPIST AT BEDSIDE; PT INAPPROPRIATAE AT THE MOMENT TO TO SWALLOW EVAL DUE TO SATURATIONS DECREASING DOWN TO 20'S AND TACHYPNEIC; TOTAL URINE OUTPUT 500MLS FOR SHIFT. PT CURRENTLY ON BIPAP SATURATONS 88% ON FIO2 AT 100%
--- NOTE | 2020-12-15 19:00 | NUR ---
RECEIVED REPORT FROM SARAH, RN. PT IN BED ON BIPAP. NO S/S OF RESP OR CARDIAC DISTRESS NOTED. V/S STABLE. AFEBRILE. SKIN INTACT. ABLE TO MOVE BUE. WILL REPOSITION Q2H/PRN. ABLE TO FOLLOW COMMANDS. ABLE TO MAKE SIMPLE NEEDS KNOWN. INCONTINENT OF B/B. WITH NOGUERA CATH TO GRAVITY, SECURED TO LEG, & PATENT. CARE PLAN REVIEWED. SAFETY MEASURES & INTEGRITY MAINTAINED. WILL CONTINUE TO MONITOR.
[2020-12-15] MEDS: GABAPENTIN 100 MG CAPSULE PO SCH (20:19)
[2020-12-15] MEDS: SENNOSIDES 8.6 MG TABLET PO SCH (20:19)
--- NOTE | 2020-12-15 22:00 | NUR ---
PT STABLE. DENIES ANY PAIN. RESTING IN BED. REPOSITIONED. SAFETY MEASURES & INTEGRITY MAINTAINED. MONITORING CONTINUOUSLY.
--- NOTE | 2020-12-16 | NUR ---
NO CHANGE FROM SHIFT ASSESSMENT. PT STABLE. NO S/S OF DISTRESS NOTED. V/S STABLE. AFEBRILE. SAFETY MEASURES & INTEGRITY MAINTAINED. WILL CONTINUE TO MONITOR.
--- NOTE | 2020-12-16 02:00 | NUR ---
NO S/S OF DISTRESS NOTD. V/S STABLE. SAFETY MEASURES & INTEGRITY MAINTAINED. MONITORING CONTINUOUSLY.
--- NOTE | 2020-12-16 04:00 | NUR ---
NO CHANGE FROM SHIFT ASSESSMENT. PT STABLE. NO S/S OF ACUTE DISTRESS NOTED. V/S STABLE. SAFETY MEASURES & INTEGRITY MAINTAINED. WILL CONTINUE TO MONITOR.
[2020-12-16] MEDS: methylPREDNISolone SOD SUCC/PF 62.5 MG/ML VIAL IVP SCH ×3 (05:19→17:48)
[2020-12-16] MEDS: PIPERACILLIN/TAZO 2.25G/DEX-IS 50 ML IV SCH ×3 (05:19→17:48)
[2020-12-16] MEDS: INSULIN REGULAR, HUMAN 100 UNITS/ML, 10 ML VIAL (humuLIN R) SUBCUT PRN ×2 (05:20→17:23)
--- NOTE | 2020-12-16 08:23 | NUR ---
PT RECEIVED ON BIPAP FIO2 100%; NO ACUTE DISTRESS NOTED. CURRETNLY SATURATING AT 88%
[2020-12-16] MEDS: FAMOTIDINE PF 20 MG/2 ML VIAL IVP SCH ×2 (08:38→21:00)
[2020-12-16] MEDS: DOCUSATE SODIUM 100 MG CAPSULE PO SCH ×2 (08:38→21:00)
[2020-12-16] MEDS: INSULIN GLARGINE 100 UNITS/ML 10 ML VIAL SUBCUT SCH (08:38)
[2020-12-16] MEDS: lisinopriL 5 MG TABLET PO SCH (08:40)
[2020-12-16] MEDS: CHOLECALCIFEROL (VITAMIN D3) 5,000 UNIT TABLET PO SCH (08:40)
[2020-12-16] MEDS: ASCORBIC ACID 500 MG TABLET PO SCH ×2 (08:40→21:00)
[2020-12-16] MEDS: ENOXAPARIN SODIUM 40 MG/0.4 ML SYRINGE SUBCUT SCH ×2 (08:47→21:00)
[2020-12-16] MEDS: KCL 20 mEq in D5W 1000 mL 1,000 ML IV SCH (11:34)
[2020-12-16] MEDS: ALBUTEROL MDI INHALATION 8 GM INH INH SCH (13:20)
--- NOTE | 2020-12-16 14:17 | NUR ---
DR. PÉREZ AT BEDSIDE; ASKING WHY PICC LINE HASNT BEEN PLACE. MADE AWARE VISITOR SERVICES ASSISTANT WAS CONTACTED SINCE ORDER WAS PLACE AND I PERSONALLY HAVE BEEN FOLLOWING UP WITH PICC LINE. PICC STILL PENDING. PT RESTING COMFORTABLY IN BED BIPAP AT FIO2 100%
--- NOTE | 2020-12-16 14:50 | NUR ---
PICC LINE ORDER GIVEN TO MACHINE FEEDER RAW STOCK ANGELIQUE; MADE AWARE PT HASNT HAD A PICC LINE SINCE IT WAS ORDERED. WILL FOLLOW UP
--- NOTE | 2020-12-16 15:08 | NUR ---
Nutrition F/U RD reviewed pt's current EMR record including diet Hx, physician notes, nursing notes, pertinent labs/meds/procedures, care trends, and care activity. Admission Dx: Acute respiratory failure PMH: HTN, DM, dementia, DJD per physician notes Pt also found w/ COVID-19 pneumonia, sepsis, and complicated UTI per physician notes SARS-CoV-2 Ag (Rapid) Negative 12/09/20 Current Diet Order/Nutrition Support: NPO x2 days Subjective Info: Surge charting d/t high RD pt load. Per EMR review, pt was seen by ST for swallow eval 12/15/20, however, d/t pt's seemingly poor respiratory status, he is not a candidate for swallow eval at this time; plans for PICC placement. RD called ER to speak w/ pt's primary RN, but she was unavailable per community action worker. RD called healthcare specialist ([phone]); no response. Pt is not meeting nutritional needs. Pertinent Medications: lantus, KCl/D5% at 75 ml/hr (306 kcal/day), colace, solu-medrol, SSI Pertinent Labs: WBC 15.2 H, Na 153 H, BG 255 H, POC BG 166 H, CRP 14 H, ALB 1.8 L Weight (Pounds) 150 pounds -- stable, no changes since 12/11 Patient Weight 68.039 kg Skin Integrity Comment: South scale of 15 noted; previous report of skin breakdown/PI to L buttock per RN report 12/11/20 Current % PO N/A -- pt has been NPO Estimated Energy Expenditure (kcals/day) 4407-7970 kcal/day (25-30 kcal/kg CBW d/t critical care, BMI <30 kg/m2) Estimated Protein Required (g/day) 82-136 gm/day (1.2-2 gm/kg CBW d/t critical care, BMI <30 kg/m2, wound) Estimated Fluid Required (l/day) 1.7-2 L/day (1 ml/kcal/day for maintenance) Problem/Etiology/Signs/Symptoms Suboptimal nutritional intakes related to breathing difficulty and wound healing as evidenced by RN report of poor PO intakes and wound to L buttock. *ongoing Expected Outcomes/Goals *MODIFIED* - Monitor provision of nutrition support, appetite, and PO intakes w/ goal of pt meeting at least 50% of estimated nutritional needs, labs trending WNL, normal GI function, and skin integrity/wt maintenance Dietitian Recommendations * Consider alternative nutrition support (EN via NGT/OGT versus PPN to optimize gut health) * electronic commerce specialist consult Follow Up High Risk: F/U in 2-3 days
--- NOTE | 2020-12-16 15:16 | NUR ---
Dietitian Recommendations * Consider alternative nutrition support (EN via NGT/OGT versus PPN to optimize gut health) * funeral pre arrangement specialist consult LP, RD Please refer to Nutrition F/U for details.
--- NOTE | 2020-12-16 16:17 | NUR ---
UNABLE TO OBTAIN CONSENT FROM NEXT OF KIN SYLVIA COTTER (DAUGHTER); MULTIPLE ATTEMPTS HAVE BEEN MADE SINCE ADMISSION; WE WERE ALSO UNABLE TO OBTAIN CONSENT FOR CONVALESCENT PLASMA WELL SINCE ADMISSION; VOICE MESSAGE HAS BEEN LEFT FOR DAUGHTER AND NO CALL BACK. SPOKE W/DR CABELLO AND SIGNS CONSENT BECAUSE IT IS MEDICALLY NECESSARY; PT UNABLE TO SWALLOW AND HAS NOT RECEIVED NUTRITION; TPN NEEDS TO START FOR NUTRITION; PT HAS DYSPHAGIA UNABLE TO SWALLOW ON BIPAP AT HIGH SETTINGS 16/8 AT 100%; DESATURATES TO 22% WHEN OFF BIPAP. CHARISSE ACTUARIAL TECHNICIAN MADE AWARE DR. PÉREZ HAS BEEN CONTACTED FOR DOCUMENTATINO OF EMERGENCY CONSENT; DR PÉREZ STATES HE HAS DOCUMENTED IN HIS NOTES.
[2020-12-16 17:20] LABS: INR 1.5 (0.80-1.20); PROTHROMBIN TIME 15.3 SECS (9.5-12.5)
--- NOTE | 2020-12-16 18:49 | NUR ---
PICC LINE NURSE AT BEDSIDE IN ATTEMPT TO INSERT PICC; RN DROPPED INTRODUCER AND NEEDS NEW KIT; NO NEW KIT FOUND IN MEDSURGE AND ICU AREA; RETIREMENT SALES CONSULTANT CHARISSE MADE AWARE.
--- NOTE | 2020-12-16 18:53 | NUR ---
PICC LINE PLACED; PENDING CHEST XRAY
--- NOTE | 2020-12-16 18:54 | NUR ---
PT TOLERATED PROCEDURE WELL; REMAINS BASELINE VITALS. NO ACUTE DISTRESS NOTED.
[2020-12-16 19:00] VITALS: BP_SYST 115
[2020-12-16 20:00] VITALS: BP_SYST 122
--- NOTE | 2020-12-16 20:18 | NUR ---
PATIENT RECIEVED RESTING IN BED AWAKE ALERT ORIENTED x1, ON 100% BIPAP WITH O2 SAT CURRENTLY AT 84%
[2020-12-16 21:00] VITALS: BP_SYST 116
[2020-12-16] MEDS: SENNOSIDES 8.6 MG TABLET PO SCH (21:00)
[2020-12-16] MEDS: GABAPENTIN 100 MG CAPSULE PO SCH (21:00)
[2020-12-16 22:00] VITALS: BP_SYST 109
[2020-12-16 23:00] VITALS: BP_SYST 111
[2020-12-17] VITALS (24 sets, daily range): BP systolic 89–130
[2020-12-17] MEDS: KCL 20 mEq in D5W 1000 mL 1,000 ML IV SCH ×2 (01:15→14:00)
--- NOTE | 2020-12-17 04:22 | NUR ---
OBSERVED O2 SAT DECREASING ON MONITOR TO 81%, RT PAGED AND ASSISTED WITH REPOSITIONING PATIENT. PATIENT REMAINS ORIENTED NO SIGNS OF CONFUSION NOTED AND O2 SAT INCREASED TO 90% AFTER REPOSITIONING.
[2020-12-17 04:48] LABS: BASOPHILS % (AUTO) 0.1 % (0.0-2.0); HEMATOCRIT 44.3 % (36-54); HEMOGLOBIN 14.6 g/dL (14.0-18.0); LYMPHOCYTES # (AUTO) 0.4 K/uL (1.0-5.5); LYMPHOCYTES % (AUTO) 2.1 % (20.5-51.5); MEAN CORPUSCULAR HEMOGLOBIN 31 pg (27-31); MEAN CORPUSCULAR HGB CONC 33 % (32-36); MEAN CORPUSCULAR VOLUME 95 fL (79.0-98.0); MONOCYTES # (AUTO) 0.3 K/uL (0.0-1.0); MONOCYTES % (AUTO) 1.7 % (1.7-9.3); NEUTROPHILS # (AUTO) 19.1 K/uL (1.8-7.7); NEUTROPHILS % (AUTO) 96.1 % (40.0-70.0); PLATELET COUNT (AUTO) 294 K/uL (130-430); RED BLOOD CELL COUNT(AUTO) 4.65 MIL/uL (4.2-6.2); RED CELL DISTRIBUTION WIDTH 12.8 % (9.0-15.0); WHITE BLOOD COUNT (AUTO) 19.9 K/uL (4.8-10.8)
--- NOTE | 2020-12-17 06:25 | NUR ---
PATIETN APPEARS COMFORTABLE NO SIGNS OF DISTRESS, CONFUSION, OR CYANOSIS CURRENT O2 SAT = 90% ON BIPAP
--- NOTE | 2020-12-17 07:09 | NUR ---
700 clear lizett urine output via huff. huff care provided, patenet without kinks.
[2020-12-17] MEDS: INSULIN GLARGINE 100 UNITS/ML 10 ML VIAL SUBCUT SCH (08:08)
[2020-12-17] MEDS: ASCORBIC ACID 500 MG TABLET PO SCH ×2 (08:09→21:00)
[2020-12-17] MEDS: lisinopriL 5 MG TABLET PO SCH (08:09)
[2020-12-17] MEDS: CHOLECALCIFEROL (VITAMIN D3) 5,000 UNIT TABLET PO SCH (08:09)
[2020-12-17] MEDS: FAMOTIDINE PF 20 MG/2 ML VIAL IVP SCH ×2 (08:10→21:18)
[2020-12-17] MEDS: DOCUSATE SODIUM 100 MG CAPSULE PO SCH ×2 (08:10→21:00)
[2020-12-17] MEDS: methylPREDNISolone SOD SUCC/PF 62.5 MG/ML VIAL IVP SCH ×5 (08:10→23:11)
[2020-12-17] MEDS: ENOXAPARIN SODIUM 40 MG/0.4 ML SYRINGE SUBCUT SCH ×2 (08:11→21:19)
[2020-12-17] MEDS: ALBUTEROL MDI INHALATION 8 GM INH INH SCH ×3 (08:17→18:00)
--- NOTE | 2020-12-17 08:24 | NUR ---
PT RESTING IN BED; BIPAP AT 100% /; NO ACUTE DISTRESS NOTED. REPOSITIONED FOR COMFORT. TRANSFER TO [facility] b.
--- NOTE | 2020-12-17 09:00 | NUR ---
RECEIVED PT FROM ICU OVERFLOW TO ROOM 124B,ON BIPAP 11/07, BUR 20, FIO2 100%, SATTING 91%.CARE ASSURED.NSR ON THE MONITOR.PT IS NPO DUE TO SEVERE DYSPHAGIA.PLAN FOR TPN VIA RIGHT UPPER ARM PER REPORT.SKIN WARM AND DRY TO TOUCH.WOUND ON BILAT. BUTTOCKS.NOGUERA TO GRAVITY, DRAINING YELLOWISH SERGIO URINE.NEEDS ARE BEING MET.ISOLATION FOR COVID-19(+) IN PROGRESS.
[2020-12-17] MEDS: PIPERACILLIN/TAZO 2.25G/DEX-IS 50 ML IV SCH ×4 (12:40→23:11)
[2020-12-17] MEDS: INSULIN REGULAR, HUMAN 100 UNITS/ML, 10 ML VIAL (humuLIN R) SUBCUT PRN ×2 (17:37→23:43)
[2020-12-17] MEDS ORDERED: *TPN PER PHARMACY XX PRN (18:00)
--- NOTE | 2020-12-17 18:26 | NUR ---
WOUND EVALUATION: Wound Consult received from Dr. Coombs. Thank you, Dr. Coombs, for the consult. Patient received in a Hill-Rom Bed with an Atmos-Air 9000 mattress, awake, slow to respond, non-verbal. Patient requires assist to turn in bed. South Score is a 15. Past Medical History: Diabetes Mellitus, Hypertension, Dementia, Degenerative Joint Disease. Patient brought to the Emergency Room at [facility] with Acute Respiratory Failure. Recent Labs: WBC 19.9, RBC 4.65, hemoglobin 14.6, hematocrit 44.3, sodium 153, chloride 117, glucose 255, POC glucose 289, albumin 1.8, serum total protein 5.3, PT 15.3, INR 1.5, PTT 36.1, D-dimer 932. Microbiology: Blood culture results x2 negative. Urine culture results positive for Klebsiella pneumoniae. Intrinsic factors that delay wound healing: Diabetes Mellitus, severe Hypoalbuminemia, Acute Respiratory Failure, Hyperglycemia. Extrinsic factors that delay wound healing: Decreased mobility. Wound Assessment: 1. Right Buttock: Stage II pressure injury. Site has 60% pink tissue, 40% dark red tissue. No odor, no drainage. Area is not soft nor boggy. Periwound intact with dark discolored broken skin. Site measures 3.1 cm x 1.3 cm. 2. Left Buttock: Stage II pressure injury. Site has 90% pink tissue, 10% dark red tissue. No odor, no drainage. Area is not soft nor boggy. Periwound intact. Site measures 3.2 cm x 4.2 cm. Recommend: Cleanse wounds with normal saline. Apply moisture barrier cream to jose-wounds. Apply Venelex ointment to wound beds. Cover with 4x4 foam dressings. Perform wound care daily, and as needed for dressing soiling or dislodgement. 3. Gluteal Cleft: Intertrigo with superficial open area that has dry, pink tissue. No odor, no drainage. Recommend: Cleanse site with normal saline. Apply moisture barrier cream to site. Cover with 4x4 foam dressing, pushing dressing into cleft area first with fingers. Perform site care daily, and as needed for dressing soiling or dislodgement. 4. Left Medial Heel: Blanchable redness. Recommend: Elevate, offload and float bilateral heels with one pillow lengthwise under each extremity at all times. Do not allow heel to touch bed or other surfaces at other at any time. Also recommend: Reposition patient side to side only every 2 hours with pillow support and off-load pressure areas with pillows for pressure re-distribution. Offload, elevate and float bilateral heels with one pillow lengthwise and each extremity at all times. Do not allow heel to touch bed or other surfaces at other at any time. Perform skin care and monitor skin integrity Q shift. Use moisture barrier cream on buttocks and other moisture susceptible areas QID and as needed for soiling. Place patient on a low air-loss mattress.
--- NOTE | 2020-12-17 19:15 | NUR ---
change of shift.pt.presents isolation status;droplet:covid19+status.pt.presents bi-pap;settings;i/e:16/8,r/r:20,fio-2%=100%. o2 sat% note:93%.pt.presents picc line;location;rt.bicept.iv fluids infusing.pt.presents huff cath.intact;patent urine content present.general status stable.respiratory status stable.call light/telephone w/in access of the pt.
--- NOTE | 2020-12-17 20:00 | NUR ---
pt.assessed.v/s assessed values w/in normal limits.bi-pap intact;02-sat%=96%.picc line intact;patent iv fluids infusing. pt.assessed for cleanliness.pt.repositioned.per flacc pain mgx pt.absent facial grimaces/body posturing.huff cath intact;patent urine content present.i have attended to the huff cath.call light/telephone placed w/in access of the pt.
[2020-12-17] MEDS: GABAPENTIN 100 MG CAPSULE PO SCH (21:00)
[2020-12-17] MEDS: SENNOSIDES 8.6 MG TABLET PO SCH (21:00)
--- NOTE | 2020-12-17 21:00 | NUR ---
2100pmedicationsd administered.all po medication hold.diet status;npo.ivp;pepcid,sq lovenox administered.
[2020-12-17] MEDS ORDERED: FAMOTIDINE PF 20 MG/2 ML VIAL ONE (21:18)
--- NOTE | 2020-12-17 22:00 | NUR ---
pt.assessed.v/s assessed values w/in normal limits.o2-sat%=96%.picc line intact;patent iv fluids infusing.huff cath intact;patent urine content present.i have attended to the huff cath.pt.assessed for cleanliness.pt.repositioned.per flacc pain mgx pt.absent facial grimaces/body posturing.general status stable.respiratory status stable;unlabored.call light/telephone placed w/in access of the pt.
[2020-12-18] VITALS (26 sets, daily range): BP systolic 90–132
--- NOTE | 2020-12-18 | NUR ---
pt.assessed.v/s assessed values w/in normal limits.o2-sat%=96%.picc line intact;patent iv fluids infusing.i have administered zosyn abx;ivpb midnight dose.pt.assessed for cleanliness.pt.repositioned.per flacc pain mgx pt.absent facial grimaces/body posturing. general status stable.respiratory status stable.call light telephone placed w/in access of the pt.i have assessed the blood glucose;value;254/mg/dl.i have administered insulin;regular:6-units per sliding scale.
[2020-12-18] MEDS: ALBUTEROL MDI INHALATION 8 GM INH INH SCH ×3 (00:23→14:21)
--- NOTE | 2020-12-18 02:00 | NUR ---
pt.assessed.v/s assessed values w/in normal limits.02-sat%=96%.picc line intact;patent iv fluids infusing.huff cath inatct; patent urine content present.i have attended to the huff cath.per flacc pain mgx pt.absent facial grimaces/body posturing. pt.assessed for cleanliness.pt.repositioned.general status stable.respiratory status stable.call light/telephone placed w/in access of the pt.
[2020-12-18] MEDS: KCL 20 mEq in D5W 1000 mL 1,000 ML IV SCH ×2 (03:20→17:40)
--- NOTE | 2020-12-18 04:00 | NUR ---
pt.assessed.apprised pt's heart rate;48bmp.pt.presents quiescent affect;calm,somnolent.asymptomatic.v/s assessed values w/in normal limits.picc line intact;patent IV FLUIDS INFUSiNG.NOGUERA CATH intact;PATenT URINe CONTENT PReSEnT.pt.assessed for cleanliness.pt.repositioned.per flacc pain mgx pt.absent facial grimaces/body posturing.call light/telephone placed w/in access of the pt.
[2020-12-18] MEDS: methylPREDNISolone SOD SUCC/PF 62.5 MG/ML VIAL IVP SCH ×3 (05:30→19:15)
[2020-12-18] MEDS: PIPERACILLIN/TAZO 2.25G/DEX-IS 50 ML IV SCH ×3 (05:30→17:40)
--- NOTE | 2020-12-18 06:00 | NUR ---
pt.assessed.v/s assessed values w/in normal limits.note heart rate maintained s.bradycardia asymptomatic.no c/o pain,nausea. pt.assessed for cleanliness.pt.repositioned.o2-sat%=96%.via bi-pap.call light/telephone placed w/in access of the pt.
[2020-12-18] MEDS: INSULIN REGULAR, HUMAN 100 UNITS/ML, 10 ML VIAL (humuLIN R) SUBCUT PRN ×2 (06:12→12:00)
--- NOTE | 2020-12-18 06:30 | NUR ---
PT.ASSESSED.V/S ASSESSED NOTE HEART RATE MAINTAINED S.BRADYCARDIA.BLOOD GLUCOSE VALUE;135MG/DL.NO C/O PAIN,NAUSEA. I HAVE ATTENDED TO THE URINAL/MEASURESPALCED W/IN ACCESS OF PT.[facility] ASINSPCETED CLWEN W/IN ACCWESS OF THE PT. %=90%.PT.CAPABLE TO REPOTI HIREN;F.CALL LIGHT/TELEPHOE W/IN ACCESS [facility] EPT. Addendum: 12/19/20 at 1845 by Josué Salas RN above note credited in error.[email or web address].rm;124-a.above info.pt's heart rate is nsr.not s.bradycardia.
[2020-12-18 06:45] LABS: BASOPHILS # (AUTO) 0.1 K/uL (0.0-0.2); BASOPHILS % (AUTO) 0.5 % (0.0-2.0); HEMATOCRIT 40.2 % (36-54); HEMOGLOBIN 13.5 g/dL (14.0-18.0); LYMPHOCYTES # (AUTO) 0.3 K/uL (1.0-5.5); LYMPHOCYTES % (AUTO) 1.9 % (20.5-51.5); MEAN CORPUSCULAR HEMOGLOBIN 32 pg (27-31); MEAN CORPUSCULAR HGB CONC 34 % (32-36); MEAN CORPUSCULAR VOLUME 95 fL (79.0-98.0); MONOCYTES # (AUTO) 0.2 K/uL (0.0-1.0); MONOCYTES % (AUTO) 1.2 % (1.7-9.3); NEUTROPHILS # (AUTO) 14.5 K/uL (1.8-7.7); NEUTROPHILS % (AUTO) 96.4 % (40.0-70.0); PLATELET COUNT (AUTO) 234 K/uL (130-430); RED BLOOD CELL COUNT(AUTO) 4.25 MIL/uL (4.2-6.2); RED CELL DISTRIBUTION WIDTH 12.7 % (9.0-15.0); WHITE BLOOD COUNT (AUTO) 15.1 K/uL (4.8-10.8)
[2020-12-18 07:52] LABS: ANION GAP 7 (5-15); CALCIUM 8.8 mg/dL (8.4-11.0); CHLORIDE 115 mmol/L (98-107); CREATININE 0.78 mg/dL (0.55-1.30); GLUCOSE 218 mg/dL (70-99); POTASSIUM 3.6 mmol/L (3.5-5.1); SODIUM SERUM 151 mmol/L (136-145); UREA NITROGEN, BLOOD 20 mg/dL (8-21)
--- NOTE | 2020-12-18 08:00 | NUR ---
Opens eyes, able to follow simple commands. On BIPAP, setting 16/8/100%. PICC noted on the right UA. Has F/C. SB on monitor. Call light in place, bed locked at the lowest position, will continue to monitor.
[2020-12-18] MEDS: CHOLECALCIFEROL (VITAMIN D3) 5,000 UNIT TABLET PO SCH (09:00)
[2020-12-18] MEDS: ASCORBIC ACID 500 MG TABLET PO SCH ×2 (09:00→21:00)
[2020-12-18] MEDS: DOCUSATE SODIUM 100 MG CAPSULE PO SCH ×2 (09:00→21:00)
[2020-12-18] MEDS: BALSAM PERU/CASTOR OIL 60 GM OINT...G. TP SCH (09:00)
[2020-12-18] MEDS: lisinopriL 5 MG TABLET PO SCH (09:00)
[2020-12-18] MEDS ORDERED: FAMOTIDINE PF 20 MG/2 ML VIAL ONE ×2 (09:13→23:42)
[2020-12-18] MEDS: FAMOTIDINE PF 20 MG/2 ML VIAL IVP SCH ×2 (09:37)
[2020-12-18] MEDS: INSULIN GLARGINE 100 UNITS/ML 10 ML VIAL SUBCUT SCH (09:40)
[2020-12-18] MEDS: ENOXAPARIN SODIUM 40 MG/0.4 ML SYRINGE SUBCUT SCH ×2 (09:41→21:00)
--- NOTE | 2020-12-18 09:45 | NUR ---
Blood gas result informed to Dr. Barry; order has been given.
--- NOTE | 2020-12-18 10:10 | NUR ---
BIPAP setting changed to 18/10/100%.
--- NOTE | 2020-12-18 10:15 | NUR ---
CHANGED BIPAP SETTINGS TO 18/10, BUR 24 PER FABIANO. ABG FOLLOWS AT 1300.
--- NOTE | 2020-12-18 12:00 | NUR ---
BLOOD SUGAR 249. 4 UNITS IS GIVEN PER SLIDING SCALE.
[2020-12-18 12:42] LABS: PHOSPHORUS 2.6 mg/dL (2.7-4.5)
[2020-12-18] MEDS ORDERED: HALOPERIDOL LACTATE 5 MG/ML VIAL ONE (12:45)
[2020-12-18] MEDS ORDERED: HALOPERIDOL LACTATE 5 MG/ML VIAL IM PRN (12:45)
--- NOTE | 2020-12-18 14:22 | NUR ---
BLOOD GAS RESULTS OBTAINED. DR. MARIO IS CALLED. AWAITING CALL BACK.
--- NOTE | 2020-12-18 17:30 | NUR ---
Blood sugar 227. 4 units of RI is given.
--- NOTE | 2020-12-18 18:10 | NUR ---
Nutrition F/U RD reviewed pt's current EMR record including diet Hx, physician notes, nursing notes, pertinent labs/meds/procedures, care trends, and care activity. Admission Dx: Acute respiratory failure PMH: HTN, DM, dementia, DJD per physician notes Pt also found w/ COVID-19 pneumonia, sepsis, and complicated UTI per physician notes SARS-CoV-2 Ag (Rapid) Negative 12/09/20 Current Diet Order/Nutrition Support: NPO x4 days & TPN D50%, AA8.5% at 42 ml/hr, IL20% at 10 ml/hr daily via central line TPN Provides (w/ current KCl/D5% infusion rate): 1814 kcal/day, 43 gm protein/day, and GIR: 2.3 gm CHO/kg/min TPN Meets: 89% of upper end of estimated caloric needs and 52% of lower end of estimated protein needs Subjective Info: Surge charting d/t high RD pt load. Per EMR review, pt is on Bipap; plans for TPN support to start tonight; abd is soft w/ hypoactive bowel sounds; no BM noted today; pt's wt appears to have increased by 15# since 12/11 -- unsure of reliability. Pt is not yet meeting nutritional needs. Pertinent Medications: lantus, KCl/D5% at 75 ml/hr (306 kcal/day), colace, solu-medrol, SSI Pertinent Labs: WBC 15.2 H, Na 153 H, BG 255 H, POC BG 166 H, CRP 14 H, ALB 1.8 L Weight (Pounds) 150#/68 kg (12/11/20); NEW WT: 165#/74.8 kg (12/17/20) Skin Integrity Comment: South scale of 13; per Audioprosthologist note 12/17/20: stage 2 PI to R buttocks noted Estimated Energy Expenditure (kcals/day) 3087-1905 kcal/day (25-30 kcal/kg CBW d/t critical care, BMI <30 kg/m2) Estimated Protein Required (g/day) 82-136 gm/day (1.2-2 gm/kg CBW d/t critical care, BMI <30 kg/m2, wound healing) Estimated Fluid Required (l/day) 1.7-2 L/day (1 ml/kcal/day for maintenance) Problem/Etiology/Signs/Symptoms Suboptimal nutritional intakes related to breathing difficulty and wound healing as evidenced by RN report of poor PO intakes and wound to L buttock. *ongoing Expected Outcomes/Goals *MODIFIED* - Monitor provision of nutrition support, appetite, and PO intakes w/ goal of pt meeting at least 50% of estimated nutritional needs, labs trending WNL, normal GI function, and skin integrity/wt maintenance Dietitian Recommendations * Recommend TPN D50%, AA10% at 50 ml/hr (goal rate), IL20% at 10 ml/hr via central line TPN Provides (w/ current KCl/D5% infusion rate): 2046 kcal/day, 60 gm protein/day, and GIR: 2.8 gm CHO/kg/min TPN Meets: 100% of upper end of estimated caloric needs and 73% of lower end of estimated protein needs Follow Up High Risk: F/U in 2-3 days Addendum: 12/18/20 at [address] Nuñez RD TPN per pharmacy 12/17/[address] Notification 12/17/20 1307 Nutrition Consult (LOW SOUTH SCORE=11) 12/17/20 9157
--- NOTE | 2020-12-18 18:16 | NUR ---
Dietitian Recommendations * Recommend TPN D50%, AA10% at 50 ml/hr (goal rate), IL20% at 10 ml/hr via central line TPN Provides (w/ current KCl/D5% infusion rate): 2046 kcal/day, 60 gm protein/day, and GIR: 2.8 gm CHO/kg/min TPN Meets: 100% of upper end of estimated caloric needs and 73% of lower end of estimated protein needs LP, RD Please refer to Nutrition F/U for details.
[2020-12-18] MEDS ORDERED: NOREPINEPHRINE 4 MG/4 ML VIAL IV ONE ×2 (18:43→20:06)
--- NOTE | 2020-12-18 19:10 | NUR ---
Patient is found pulseless and apneic at 1833. Code blue is called. Patient is able to be resuscitated. Patient is intubated by ER physician, and Dr. Barry, the wheel roller, is notified, with orders are given.
[2020-12-18] MEDS ORDERED: LORazepam 2 MG/ML VIAL IVP PRN (19:15)
[2020-12-18] MEDS ORDERED: ALBUMIN HUMAN 25% 100 ML IV PRN (20:00)
[2020-12-18] MEDS ORDERED: PHENYLEPHRINE HCL 50 MG in NS 245 ML IV PRN (20:00)
[2020-12-18] MEDS: NOREPINEPHRINE BITARTRATE 16 MG in D5W 234 ML IV PRN (20:53)
[2020-12-18] MEDS: PROPOFOL DRIP 100 ML IV PRN (20:53)
[2020-12-18] MEDS ORDERED: [UNRECOGNIZED DRUG - OTHER] IV SCH ×6 (21:00)
[2020-12-18] MEDS ORDERED: TRACE ELEMENTS IV SCH ×6 (21:00)
[2020-12-18] MEDS ORDERED: FAT EMULSIONS 250 ML IV SCH (21:00)
[2020-12-18] MEDS ORDERED: INSULIN REGULAR IV SCH ×6 (21:00)
[2020-12-18] MEDS ORDERED: TPN CENTRAL IV SCH ×6 (21:00)
[2020-12-18] MEDS: SENNOSIDES 8.6 MG TABLET PO SCH (21:00)
[2020-12-18] MEDS: GABAPENTIN 100 MG CAPSULE PO SCH (21:00)
[2020-12-18] MEDS ORDERED: K PHOS IV SCH ×6 (21:00)
--- NOTE | 2020-12-18 21:32 | NUR ---
PAGED DR. MARIO [phone] SPOKE WITH DIEGO
[2020-12-18] MEDS ORDERED: SODIUM BICARBONATE 8.4% JECT 50 MEQ/50 ML SYRINGE IVP ONE (21:45)
[2020-12-18] MEDS ORDERED: SODIUM BICARBONATE 8.4% JECT 50 MEQ in 0.45% NACL 1,000 ML IVP SCH (21:45)
[2020-12-18] MEDS ORDERED: SODIUM BICARBONATE 8.4% JECT 50 MEQ/50 ML SYRINGE ONE (21:53)
--- NOTE | 2020-12-18 23:40 | NUR ---
[facility] [phone]
[2020-12-19] VITALS (22 sets, daily range): BP systolic 87–142
[2020-12-19] MEDS: PIPERACILLIN/TAZO 2.25G/DEX-IS 50 ML IV SCH ×5 (00:23→22:36)
[2020-12-19] MEDS: methylPREDNISolone SOD SUCC/PF 62.5 MG/ML VIAL IVP SCH ×5 (00:23→22:42)
--- NOTE | 2020-12-19 00:37 | NUR ---
PAGED DR. PÉREZ PAGER [phone]
[2020-12-19] MEDS: INSULIN REGULAR, HUMAN 100 UNITS/ML, 10 ML VIAL (humuLIN R) SUBCUT PRN ×2 (00:40→05:46)
--- NOTE | 2020-12-19 00:40 | NUR ---
communicated w/ dr. underwood about glucose 496 MD ordered 20 units lantus now and daily at , will follow through. Addendum: 12/19/20 at 0539 by Toni Louie RN stated if next blood glucose at 0600 is greater than 400 give 15 units of Regular Insulin.
[2020-12-19] MEDS ORDERED: INSULIN GLARGINE 100 UNITS/ML 10 ML VIAL SUBCUT SCH ×2 (01:00→21:00)
--- NOTE | 2020-12-19 02:25 | NUR ---
RT NOTES RESPONDED TO KEENA NELSON CALLED AT 1835. PATIENT WAS FOUND PULSELESS AND APNEIC. ROSC WAS ACHIEVED. PATIENT WAS INTUBATED BY ER PHYSICIAN. PATIENT WAS PLACED ON VENTILATOR, AC 26, 400, PEEP 5, 100% FIO2. PATIENTS HR 96 SATURATION 97%.
[2020-12-19] MEDS: KCL 20 mEq in D5W 1000 mL 1,000 ML IV SCH (02:26)
[2020-12-19] MEDS ORDERED: SODIUM BICARBONATE 8.4% JECT 50 MEQ in 0.45% NACL 1,000 ML IVP ONE (04:00)
--- NOTE | 2020-12-19 06:14 | NUR ---
HIGH ALERT NOTE: Called Dr. underwood back at [phone] identified within the medical roster to verify physician authenticity.
[2020-12-19] MEDS ORDERED: INSULIN REGULAR, HUMAN 100 UNITS/ML, 10 ML VIAL IVP ONE ×2 (06:15→16:30)
[2020-12-19] MEDS ORDERED: KCL 20 mEq in NS 1000 mL 1,000 ML IV SCH ×2 (06:15→16:45)
[2020-12-19 06:31] LABS: HEMATOCRIT 47.5 % (36-54); HEMOGLOBIN 14.9 g/dL (14.0-18.0); MEAN CORPUSCULAR HEMOGLOBIN 31 pg (27-31); MEAN CORPUSCULAR HGB CONC 31 % (32-36); MEAN CORPUSCULAR VOLUME 101 fL (79.0-98.0); PLATELET COUNT (AUTO) 280 K/uL (130-430); RED BLOOD CELL COUNT(AUTO) 4.73 MIL/uL (4.2-6.2); RED CELL DISTRIBUTION WIDTH 13.9 % (9.0-15.0)
[2020-12-19 07:34] LABS: WHITE BLOOD COUNT (AUTO) 49.5 K/uL (4.8-10.8)
[2020-12-19] MEDS ORDERED: EPINEPHrine JECT 0.1 MG/ML SYR IVP ONE (08:30)
[2020-12-19] MEDS: lisinopriL 5 MG TABLET PO SCH (09:00)
[2020-12-19] MEDS: FAMOTIDINE PF 20 MG/2 ML VIAL IVP SCH ×2 (09:00→21:00)
[2020-12-19] MEDS: NOREPINEPHRINE BITARTRATE 16 MG in D5W 234 ML IV PRN (09:26)
[2020-12-19 09:50] LABS: ATYPICAL LYMPHOCYTES % 0 % (0-0); BAND % (MANUAL) 9 % (0-6); BASOPHILS % (MANUAL) 0 % (0-2); EOSINOPHILS % (MANUAL) 0 % (0-7); LYMPHOCYTES % (MANUAL) 2 % (20-46); MONOCYTES % (MANUAL) 2 % (0-11)
[2020-12-19] MEDS: ALBUTEROL MDI INHALATION 8 GM INH INH SCH ×3 (10:37→19:42)
[2020-12-19] MEDS: CHOLECALCIFEROL (VITAMIN D3) 5,000 UNIT TABLET PO SCH (11:08)
[2020-12-19] MEDS: ASCORBIC ACID 500 MG TABLET PO SCH ×2 (11:08→21:00)
[2020-12-19] MEDS: DOCUSATE SODIUM 100 MG CAPSULE PO SCH ×2 (11:08→21:00)
[2020-12-19] MEDS: ENOXAPARIN SODIUM 40 MG/0.4 ML SYRINGE SUBCUT SCH ×2 (11:10→21:00)
--- NOTE | 2020-12-19 11:15 | NUR ---
CHANGED VENT SETTINGS TO VT 450ML AND PEEP +8 PER FABIANO. ABG FOLLOWS IN 2 HOURS. SPO2 88%, HR 104.
[2020-12-19] MEDS: BALSAM PERU/CASTOR OIL 60 GM OINT...G. TP SCH (11:37)
[2020-12-19 11:39] LABS: ALANINE AMINOTRANSFERASE 882 U/L (12-78); ALBUMIN 1.7 g/dL (3.4-4.8); ANION GAP 10 (5-15); ASPARTATE AMINOTRANSFERASE 481 U/L (10-37); CALCIUM 8.1 mg/dL (8.4-11.0); CHLORIDE 102 mmol/L (98-107); PHOSPHORUS 4.7 mg/dL (2.7-4.5); POTASSIUM 3.6 mmol/L (3.5-5.1); SODIUM SERUM 140 mmol/L (136-145); TOTAL BILIRUBIN 1.3 mg/dL (0.0-1.0); UREA NITROGEN, BLOOD 45 mg/dL (8-21)
[2020-12-19] MEDS: INSULIN GLARGINE 100 UNITS/ML 10 ML VIAL SUBCUT SCH ×2 (11:40→21:00)
[2020-12-19 11:52] LABS: GLUCOSE 811 mg/dL (70-99)
[2020-12-19] MEDS: PROPOFOL DRIP 100 ML IV PRN (15:14)
--- NOTE | 2020-12-19 16:10 | NUR ---
FINGERSTICK BLOOD SUGAR CHECKED READING "HI". DR PÉREZ CAME IN TO SEE THE PATIENT. REGULAR INSULIN DRIP STARTED AT 6 UNIT/HR.
[2020-12-19] MEDS ORDERED: COMMUNICATION ORDER XX ONE (16:30)
[2020-12-19] MEDS: INSULIN REGULAR, HUMAN 100 UNITS in NS 99 ML IV PRN ×2 (16:34)
[2020-12-19] MEDS: NACL 0.9% 1,000 ML IV SCH ×2 (18:24→23:55)
[2020-12-19] MEDS: SENNOSIDES 8.6 MG TABLET PO SCH (21:00)
[2020-12-19] MEDS ORDERED: FAMOTIDINE PF 20 MG/2 ML VIAL IVP ONE (21:00)
[2020-12-19] MEDS: GABAPENTIN 100 MG CAPSULE PO SCH (21:00)
[2020-12-19] MEDS ORDERED: POTASSIUM CHLORIDE IV SCH ×8 (21:00)
[2020-12-19] MEDS ORDERED: TPN CENTRAL IV SCH ×8 (21:00)
[2020-12-19] MEDS ORDERED: TRACE ELEMENTS IV SCH ×8 (21:00)
[2020-12-19] MEDS ORDERED: [UNRECOGNIZED DRUG - OTHER] IV SCH ×8 (21:00)
[2020-12-20] VITALS (27 sets, daily range): BP systolic 74–136
[2020-12-20] MEDS ORDERED: NOREPINEPHRINE 4 MG/4 ML VIAL IV ONE ×2 (01:23→10:41)
[2020-12-20] MEDS: ALBUTEROL MDI INHALATION 8 GM INH INH SCH ×4 (01:24→13:50)
[2020-12-20] MEDS: PROPOFOL DRIP 100 ML IV PRN (02:10)
--- NOTE | 2020-12-20 05:44 | NUR ---
PAGED DR. PÉREZ PAGER [phone]
[2020-12-20] MEDS: methylPREDNISolone SOD SUCC/PF 62.5 MG/ML VIAL IVP SCH ×3 (06:00→17:32)
[2020-12-20] MEDS: PIPERACILLIN/TAZO 2.25G/DEX-IS 50 ML IV SCH ×3 (06:00→17:32)
[2020-12-20 07:21] LABS: HEMATOCRIT 42.6 % (36-54); MEAN CORPUSCULAR HEMOGLOBIN 31 pg (27-31); MEAN CORPUSCULAR HGB CONC 33 % (32-36); MEAN CORPUSCULAR VOLUME 95 fL (79.0-98.0); PLATELET COUNT (AUTO) 142 K/uL (130-430); RED CELL DISTRIBUTION WIDTH 12.9 % (9.0-15.0)
[2020-12-20] MEDS: NACL 0.9% 1,000 ML IV SCH ×2 (07:36→18:42)
--- NOTE | 2020-12-20 07:36 | NUR ---
Patient tolerated plan of care, current vent settings and plan of care, he is afebrile without a bowel movement. chest tube is patent with 100CC of output. Pugh catheter is patent with minimal urine output with 250CC with sediments. Levophed infusing to maintain adequate blood pressure. Plan of care reviewed with oncoming RN
[2020-12-20 07:51] LABS: WHITE BLOOD COUNT (AUTO) 40.6 K/uL (4.8-10.8)
[2020-12-20 08:06] LABS: ALANINE AMINOTRANSFERASE 462 U/L (12-78); ALBUMIN 1.4 g/dL (3.4-4.8); ANION GAP 12 (5-15); CALCIUM 7.6 mg/dL (8.4-11.0); CHLORIDE 106 mmol/L (98-107); GLUCOSE 76 mg/dL (70-99); PHOSPHORUS 4.4 mg/dL (2.7-4.5); POTASSIUM 3.9 mmol/L (3.5-5.1); SODIUM SERUM 143 mmol/L (136-145); TOTAL BILIRUBIN 1.1 mg/dL (0.0-1.0); UREA NITROGEN, BLOOD 53 mg/dL (8-21)
[2020-12-20 08:53] LABS: ASPARTATE AMINOTRANSFERASE 73 U/L (10-37)
[2020-12-20] MEDS: ENOXAPARIN SODIUM 40 MG/0.4 ML SYRINGE SUBCUT SCH ×2 (09:00→21:00)
[2020-12-20] MEDS: INSULIN GLARGINE 100 UNITS/ML 10 ML VIAL SUBCUT SCH ×2 (09:46→21:00)
[2020-12-20] MEDS: CHOLECALCIFEROL (VITAMIN D3) 5,000 UNIT TABLET PO SCH (09:55)
[2020-12-20] MEDS: ASCORBIC ACID 500 MG TABLET PO SCH ×2 (09:55→21:00)
[2020-12-20] MEDS: FAMOTIDINE PF 20 MG/2 ML VIAL IVP SCH ×2 (09:55→21:00)
[2020-12-20] MEDS: BALSAM PERU/CASTOR OIL 60 GM OINT...G. TP SCH (09:56)
[2020-12-20] MEDS: DOCUSATE SODIUM 100 MG CAPSULE PO SCH ×2 (09:56→21:00)
--- NOTE | 2020-12-20 12:00 | NUR ---
pt getting glucerna bolus feeds for 10 ml/hr. UO has dropped and MD baldwin taking care of pt wants to continue IVF and has added albumins as well q6h. Contniue to watch UO. Vancomycin added today as well. 1st dose given
[2020-12-20] MEDS: MICAFUNGIN SODIUM 100 MG in NS 100 ML IV SCH (13:48)
--- NOTE | 2020-12-20 13:56 | NUR ---
Nutrition F/U RD reviewed pt's current EMR record including diet Hx, physician notes, nursing notes, pertinent labs/meds/procedures, care trends, and care activity. Admission Dx: Acute respiratory failure PMH: HTN, DM, dementia, DJD per physician notes Pt also found w/ COVID-19 pneumonia, sepsis, and complicated UTI per physician notes SARS-CoV-2 Ag (Rapid) Negative 12/09/20 Current Diet Order/Nutrition Support: Glucerna 1.2 @40ml/hr (goal rate) FWF 0ml via NGT Subjective Info: Surge charting d/t high RD pt load. Per EMR review, pt is s/p code blue and BG out of control and developed pneumothorax and rib fracture from resuscitation, pt is not requiring full vent support. RD s/w pt's primary RN who reported that pt does not have a feeding pump and EN has been provided bolus. Current EN is not yet meeting adequate nutrition and EN infusion rate needs to be increased. Pertinent Medications: Haldol, Piperacillin/tazobactam, Zinc, VIT D, Colace, Senna, VIT C, Lovenox Pertinent Labs: 12/20 Na 143, K 3.9, BG 76, POC BG 364H, BUN 53H, Cre 3.10H Height: 5 feet 10 pounds. Weight (Pounds) 150#/68 kg (12/11/20); NEW WT: 165#/74.8 kg (12/17/20) Skin Integrity Comment: South scale of 12; per Senior Software Development Engineer note 12/17/20: stage 2 PI to left and R buttocks noted Estimated Energy Expenditure (kcals/day) 3804-7644 kcal/day (25-30 kcal/kg CBW d/t critical care, BMI <30 kg/m2) Estimated Protein Required (g/day) 82-136 gm/day (1.2-2 gm/kg CBW d/t critical care, BMI <30 kg/m2, wound healing) Estimated Fluid Required (l/day) 1.7-2 L/day (1 ml/kcal/day for maintenance) Problem/Etiology/Signs/Symptoms Suboptimal nutritional intakes related to breathing difficulty and wound healing as evidenced by RN report of poor PO intakes and wound to L buttock. *ongoing Expected Outcomes/Goals *MODIFIED* - Monitor EN tolerance and PO intakes w/ goal of pt meeting at least 75% of estimated nutritional needs, labs trending WNL, normal GI function, and skin integrity/wt maintenance Dietitian Recommendations * Recommend Glucerna 1.2 at 60ml/hr Melquiades BID, FWF 130ml Q6hr via NGT Provides: 1888 Kcal, 91gm protein and 1679ml free water daily. Meets: 93% of upper end of estimated calorie needs and 111% of lower end of estimated protein needs. Follow Up High Risk: F/U in 2-3 days
[2020-12-20] MEDS ORDERED: VANCOMYCIN HCL 1,000 MG in NS 250 ML IV ONE (14:00)
[2020-12-20] MEDS: ALBUMIN HUMAN 25% 100 ML IV SCH ×2 (14:00→20:00)
--- NOTE | 2020-12-20 14:08 | NUR ---
Dietitian Recommendations * Recommend Glucerna 1.2 at 60ml/hr Melquiades BID, FWF 130ml Q6hr via NGT Provides: 1888 Kcal, 91gm protein and 1679ml free water daily. Meets: 93% of upper end of estimated calorie needs and 111% of lower end of estimated protein needs. Please see Nutrition F/U note for details [facility], RD
[2020-12-20 14:20] LABS: BAND % (MANUAL) 15 % (0-6); BASOPHILS % (MANUAL) 0 % (0-2); EOSINOPHILS % (MANUAL) 0 % (0-7); LYMPHOCYTES % (MANUAL) 2 % (20-46); MONOCYTES % (MANUAL) 2 % (0-11)
[2020-12-20] MEDS ORDERED: FUROSEMIDE 40 MG/4 ML VIAL ONE (17:58)
[2020-12-20] MEDS ORDERED: FUROSEMIDE 40 MG/4 ML VIAL IVP ONE (18:15)
[2020-12-20] MEDS: GABAPENTIN 100 MG CAPSULE PO SCH (21:00)
[2020-12-20] MEDS: SENNOSIDES 8.6 MG TABLET PO SCH (21:00)
[2020-12-21] VITALS (29 sets, daily range): BP systolic 95–137
--- NOTE | 2020-12-21 | NUR ---
ALBUMIN DOSES INFUSED ORDERED, NOTED INCREASED BLOOD PRESSURE, AND LEVOPHED ADJUSTED ACCORDINGLY. NO NEURO RESPONSES NOTED AT THIS TIME.
[2020-12-21] MEDS: ALBUMIN HUMAN 25% 100 ML IV SCH (02:00)
[2020-12-21] MEDS: ALBUTEROL MDI INHALATION 8 GM INH INH SCH ×4 (03:10→18:50)
--- NOTE | 2020-12-21 04:34 | NUR ---
CALLED TO NOTIFY THE NURSE THAT THE TELE FOR THE PATIENT IS AND NEEDS NEW BATTERIES.
--- NOTE | 2020-12-21 05:01 | NUR ---
CALLED ICU TO NOTIFY THE NURSE THAT THE TELE IS STILL AND THAT IT NEEDS NEW BATTERIES.
[2020-12-21] MEDS: methylPREDNISolone SOD SUCC/PF 62.5 MG/ML VIAL IVP SCH ×4 (06:15→17:00)
[2020-12-21] MEDS: PIPERACILLIN/TAZO 2.25G/DEX-IS 50 ML IV SCH ×4 (06:15→17:00)
--- NOTE | 2020-12-21 06:30 | NUR ---
BLOOD SUGAR NOTED TO BE ELEVATED THROUGHOUT SHIFT > 180- 220 FOR FSBS. ENDORSED TO ONCOMING RN. NOTED INCREASED URINE OUTPUT FOLLOWING NEW ORDERS. PATIENT REPOSITIONED FREQUENTLY AND MONITORED CLOSELY FOR CHANGES IN CONDITION. MODERATE VENT CHANGES TO SUPPLEMENT DESATURATION MADE. WILL FOLLOW UP WITH MORNING LAB WORK AND REVIEW WITH CARE PROVIDERS.
[2020-12-21 06:49] LABS: BASOPHILS # (AUTO) 0.1 K/uL (0.0-0.2); BASOPHILS % (AUTO) 0.3 % (0.0-2.0); EOSINOPHILS % (AUTO) 0.1 % (0.0-4.0); HEMATOCRIT 32.2 % (36-54); HEMOGLOBIN 10.8 g/dL (14.0-18.0); LYMPHOCYTES # (AUTO) 0.2 K/uL (1.0-5.5); LYMPHOCYTES % (AUTO) 1.1 % (20.5-51.5); MEAN CORPUSCULAR HEMOGLOBIN 32 pg (27-31); MEAN CORPUSCULAR HGB CONC 34 % (32-36); MEAN CORPUSCULAR VOLUME 94 fL (79.0-98.0); MONOCYTES # (AUTO) 0.3 K/uL (0.0-1.0); MONOCYTES % (AUTO) 1.2 % (1.7-9.3); NEUTROPHILS # (AUTO) 21.8 K/uL (1.8-7.7); PLATELET COUNT (AUTO) 71 K/uL (130-430); RED BLOOD CELL COUNT(AUTO) 3.42 MIL/uL (4.2-6.2); RED CELL DISTRIBUTION WIDTH 12.8 % (9.0-15.0); WHITE BLOOD COUNT (AUTO) 22.3 K/uL (4.8-10.8)
--- NOTE | 2020-12-21 07:40 | NUR ---
TITRATED FIO2 DOWN TO 90%. SPO2 100%, HR 67.
[2020-12-21 07:48] LABS: ALANINE AMINOTRANSFERASE 200 U/L (12-78); ALBUMIN 2.2 g/dL (3.4-4.8); ANION GAP 16 (5-15); ASPARTATE AMINOTRANSFERASE 53 U/L (10-37); CHLORIDE 101 mmol/L (98-107); GLUCOSE 239 mg/dL (70-99); SODIUM SERUM 139 mmol/L (136-145); TOTAL BILIRUBIN 1.4 mg/dL (0.0-1.0); UREA NITROGEN, BLOOD 71 mg/dL (8-21)
[2020-12-21 07:53] LABS: NEUTROPHILS % (AUTO) 97.3 % (40.0-70.0)
[2020-12-21 08:01] LABS: CALCIUM 7.1 mg/dL (8.4-11.0); POTASSIUM 4.2 mmol/L (3.5-5.1)
[2020-12-21] MEDS ORDERED: SODIUM BICARBONATE 8.4% JECT 50 MEQ/50 ML SYRINGE ONE ×2 (09:31→16:04)
[2020-12-21] MEDS ORDERED: FAMOTIDINE PF 20 MG/2 ML VIAL ONE ×2 (09:34→21:48)
[2020-12-21] MEDS: CHOLECALCIFEROL (VITAMIN D3) 5,000 UNIT TABLET PO SCH (09:53)
[2020-12-21] MEDS: ASCORBIC ACID 500 MG TABLET PO SCH ×2 (09:53→21:51)
[2020-12-21] MEDS: FAMOTIDINE PF 20 MG/2 ML VIAL IVP SCH ×2 (09:53→22:18)
[2020-12-21] MEDS: DOCUSATE SODIUM 100 MG CAPSULE PO SCH ×2 (09:53→21:50)
[2020-12-21] MEDS: INSULIN GLARGINE 100 UNITS/ML 10 ML VIAL SUBCUT SCH ×2 (09:54→21:52)
[2020-12-21] MEDS: ENOXAPARIN SODIUM 40 MG/0.4 ML SYRINGE SUBCUT SCH ×2 (09:54→21:52)
[2020-12-21] MEDS: BALSAM PERU/CASTOR OIL 60 GM OINT...G. TP SCH (09:55)
--- NOTE | 2020-12-21 11:12 | NUR ---
TITRATED FIO2 DOWN TO 80%. SPO2 100%, HR 63.
[2020-12-21] MEDS: INSULIN REGULAR, HUMAN 100 UNITS/ML, 10 ML VIAL (humuLIN R) SUBCUT PRN ×2 (12:00→17:01)
--- NOTE | 2020-12-21 12:00 | NUR ---
While pt turned and repositioned bed and pillow found to be soaked in serosangounous drainage from CT site. Site reassessed and new dressing placed over it. Will reassess to see if it continually leaks and will escalate accrodingly
[2020-12-21] MEDS: MICAFUNGIN SODIUM 100 MG in NS 100 ML IV SCH (12:12)
[2020-12-21] MEDS: NACL 0.9% 1,000 ML IV SCH (14:00)
--- NOTE | 2020-12-21 14:43 | NUR ---
Dr Arredondo called for low UO similar to yesterday. BUN and Cr trending upward. Positive 3 L as well
--- NOTE | 2020-12-21 14:54 | NUR ---
Hr started at shift in low 60s now low 50's. Pt HD stable but Dr. Downing called for next steps
--- NOTE | 2020-12-21 15:06 | NUR ---
CONSULT CARDIO. CONSULT MD: DR. BROWN SPOKE TO: GABINO DIALED: [phone] ORDERED BY: DR. PÉREZ
[2020-12-21] MEDS ORDERED: FUROSEMIDE 40 MG/4 ML VIAL ONE (15:10)
--- NOTE | 2020-12-21 15:13 | NUR ---
both dr mcnair and dr. downing called back. 2 albumins and 40 of lasix ordered for low UO and Dr Downing wants a stat ABG for HR continuing to drop and Dr. Henao consult as well
[2020-12-21] MEDS ORDERED: FUROSEMIDE 40 MG/4 ML VIAL IVP ONE (15:15)
[2020-12-21] MEDS ORDERED: ALBUMIN HUMAN 25% 100 ML IV ONE (15:15)
--- NOTE | 2020-12-21 15:15 | NUR ---
CT drainage is serous and has slowed down. Will continue to monitor
[2020-12-21] MEDS ORDERED: SODIUM BICARBONATE 8.4% JECT 50 MEQ/50 ML SYRINGE IVP ONE (16:15)
[2020-12-21] MEDS ORDERED: THEOPHYLLINE ANHYDROUS 200 MG TAB.SR.12H PO ONE (18:15)
--- NOTE | 2020-12-21 18:19 | NUR ---
pt turned throughout day and cleaned for BM multiple times. Wound dressing changed and cream placed on. No difference in wound noted comparing to pictures in patients chart
--- NOTE | 2020-12-21 20:00 | NUR ---
ORALLY INTUBATED. SUCTIONED WITH MODERATE AMOUNT OF THICK GARCIA COLORED MUCUS OBTAINED. ORAL CARE GIVEN. NGT CLAMPED. DR MARIO HERE, NO NEW ORDERS GIVEN. ON LEVOPHED AT 0.25 MCG/KG/MIN. ON DIPRIVAN AT 40 MCG/KG/MIN. NOGUERA CATH PATENT DRAINING CLOUDY SERGIO URINE TO GRAVITY. RIGHT CHEST TUBE TO -20 CM WALL SUCTION WITH SEROSANGUINEOUS DRAINAGE UNDULATING WITH RESPIRATIONS. RIGHT CHEST TUBE INSERTION SITE LEAKING SEROUS FLUID. REINFORCED DRSG.
[2020-12-21] MEDS: SENNOSIDES 8.6 MG TABLET PO SCH (21:51)
[2020-12-21] MEDS: PROPOFOL DRIP 100 ML IV PRN (23:38)
[2020-12-22] VITALS (26 sets, daily range): BP systolic 102–143
--- NOTE | 2020-12-22 | NUR ---
GLUCERNA 120CC BOLUS GIVEN VIA NGT. ACCU-CHEK 116, NO INSULIN COV PER SLIDING SCALE COV. LEVOPHED TITRATED DOWN TO 0.142 MCG/KG/MIN.
[2020-12-22] MEDS: methylPREDNISolone SOD SUCC/PF 62.5 MG/ML VIAL IVP SCH ×4 (00:16→17:35)
[2020-12-22] MEDS: PIPERACILLIN/TAZO 2.25G/DEX-IS 50 ML IV SCH ×4 (00:22→17:35)
[2020-12-22] MEDS: INSULIN REGULAR, HUMAN 100 UNITS/ML, 10 ML VIAL (humuLIN R) SUBCUT PRN ×5 (00:24→18:02)
[2020-12-22] MEDS: ALBUTEROL MDI INHALATION 8 GM INH INH SCH ×4 (00:36→20:00)
--- NOTE | 2020-12-22 03:30 | NUR ---
LEVOPHED TITRATED DOWN TO 0.114 MCG/KG/MIN.
--- NOTE | 2020-12-22 04:00 | NUR ---
LEVOPHED TITRATED DOWN TO 0.085 MCG/KG/MIN. (QUADRUPLE STRENGTH, 6CC/HR) ORAL CARE DONE. SUCTIONED.
--- NOTE | 2020-12-22 05:00 | NUR ---
1 LARGE WATERY BROWN STOOL DEFECATED. CLEANED. IASIAS-CARE DONE. CHG BATH GIVEN. BACK CARE, SKIN CARE, NOGUERA CARE DONE. PARTIAL LINEN CHANGE. DOES NOT ASSIST WITH TURNING. DIANNE PROC WELL.
--- NOTE | 2020-12-22 06:00 | NUR ---
UO ADEQUATE. CT DRSG REINFORCED. CT 180CC OUT. ACCU-CHEK 140, NO INSULIN DUE PER SLIDING SCALE COV. REMAINS IN GUARDED CONDITION.
[2020-12-22] MEDS: THEOPHYLLINE ANHYDROUS 200 MG TAB.SR.12H PO SCH ×3 (06:40→21:29)
[2020-12-22] MEDS: PROPOFOL DRIP 100 ML IV PRN ×2 (06:41→21:17)
[2020-12-22] MEDS: ENOXAPARIN SODIUM 40 MG/0.4 ML SYRINGE SUBCUT SCH ×2 (09:00→21:31)
[2020-12-22] MEDS: INSULIN GLARGINE 100 UNITS/ML 10 ML VIAL SUBCUT SCH ×2 (09:00→21:38)
[2020-12-22] MEDS ORDERED: VANCOMYCIN HCL 750 MG in NS 250 ML IV ONE (09:00)
[2020-12-22 09:03] LABS: BASOPHILS # (AUTO) 0.1 K/uL (0.0-0.2); BASOPHILS % (AUTO) 0.3 % (0.0-2.0); HEMATOCRIT 31.1 % (36-54); HEMOGLOBIN 10.4 g/dL (14.0-18.0); LYMPHOCYTES # (AUTO) 0.3 K/uL (1.0-5.5); LYMPHOCYTES % (AUTO) 1.1 % (20.5-51.5); MEAN CORPUSCULAR HEMOGLOBIN 31 pg (27-31); MEAN CORPUSCULAR HGB CONC 34 % (32-36); MEAN CORPUSCULAR VOLUME 94 fL (79.0-98.0); MONOCYTES # (AUTO) 0.1 K/uL (0.0-1.0); MONOCYTES % (AUTO) 0.3 % (1.7-9.3); NEUTROPHILS % (AUTO) 98.3 % (40.0-70.0); RED BLOOD CELL COUNT(AUTO) 3.32 MIL/uL (4.2-6.2); RED CELL DISTRIBUTION WIDTH 13.1 % (9.0-15.0)
[2020-12-22 09:05] LABS: WHITE BLOOD COUNT (AUTO) 24.4 K/uL (4.8-10.8)
[2020-12-22 09:29] LABS: ANION GAP 17 (5-15); CALCIUM 7.1 mg/dL (8.4-11.0); CHLORIDE 102 mmol/L (98-107); CREATININE 3.99 mg/dL (0.55-1.30); GLUCOSE 186 mg/dL (70-99); POTASSIUM 3.8 mmol/L (3.5-5.1); SODIUM SERUM 140 mmol/L (136-145); UREA NITROGEN, BLOOD 85 mg/dL (8-21)
[2020-12-22 09:36] LABS: ALANINE AMINOTRANSFERASE 128 U/L (12-78); ALBUMIN 2.4 g/dL (3.4-4.8); ASPARTATE AMINOTRANSFERASE 41 U/L (10-37); TOTAL BILIRUBIN 1.2 mg/dL (0.0-1.0)
[2020-12-22 09:59] LABS: THYROID STIMULATING HORMONE 0.25 uIu/mL (0.36-3.74)
[2020-12-22] MEDS: NACL 0.9% 1,000 ML IV SCH (10:00)
[2020-12-22] MEDS: CHOLECALCIFEROL (VITAMIN D3) 5,000 UNIT TABLET PO SCH (10:22)
[2020-12-22] MEDS: DOCUSATE SODIUM 100 MG CAPSULE PO SCH ×2 (10:22→21:29)
[2020-12-22] MEDS: ASCORBIC ACID 500 MG TABLET PO SCH ×2 (10:22→21:29)
[2020-12-22] MEDS: FAMOTIDINE PF 20 MG/2 ML VIAL IVP SCH ×2 (10:22→21:29)
[2020-12-22] MEDS: BALSAM PERU/CASTOR OIL 60 GM OINT...G. TP SCH (10:24)
[2020-12-22 11:57] LABS: PLATELET COUNT (AUTO) 66 K/uL (130-430)
--- NOTE | 2020-12-22 11:58 | NUR ---
RN NOTES ABG RESULT RELAYED TO DR. MARIO, NO ORDERS MADE.
[2020-12-22] MEDS: CEFEPIME 0.5 GM in D5W 50 ML IV SCH (12:00)
--- NOTE | 2020-12-22 13:55 | NUR ---
When pt awoken from ssedation consistent coughing and fighting tube. Lip line for tube went from 25 to 21. Stat Xray called and RT as well to advance tube. Patient saturations improved and is ok
[2020-12-22] MEDS: MICAFUNGIN SODIUM 100 MG in NS 100 ML IV SCH (14:17)
--- NOTE | 2020-12-22 16:10 | NUR ---
ETT WAS PULLED OUT, REINSERTED TO 24CM, RE-TAPED, RON, ETT SECURE Addendum: 12/22/20 at 1736 by Jossie Goldsmith RT Amended: Links added.
--- NOTE | 2020-12-22 20:16 | NUR ---
PAGED FOR ORDERS DIALED: [phone] SPOKE TO: ANTONIO
[2020-12-22] MEDS ORDERED: FAMOTIDINE PF 20 MG/2 ML VIAL ONE (21:29)
[2020-12-22] MEDS: SENNOSIDES 8.6 MG TABLET PO SCH (21:29)
[2020-12-22] MEDS: metroNIDAZOLE 500 mg/NS 100 ML IV SCH (21:29)
[2020-12-23] VITALS (27 sets, daily range): BP systolic 96–132
[2020-12-23] MEDS: PIPERACILLIN/TAZO 2.25G/DEX-IS 50 ML IV SCH ×4 (00:48→17:26)
[2020-12-23] MEDS: methylPREDNISolone SOD SUCC/PF 62.5 MG/ML VIAL IVP SCH ×4 (00:48→17:26)
[2020-12-23] MEDS: ALBUTEROL MDI INHALATION 8 GM INH INH SCH ×4 (04:30→19:30)
[2020-12-23] MEDS: THEOPHYLLINE ANHYDROUS 200 MG TAB.SR.12H PO SCH ×3 (05:57→23:21)
[2020-12-23] MEDS: NACL 0.9% 1,000 ML IV SCH (06:00)
[2020-12-23] MEDS: PROPOFOL DRIP 100 ML IV PRN (06:34)
[2020-12-23] MEDS ORDERED: DEXTROSE 50% JECT 50 ML DISP.SYRIN ONE (06:43)
[2020-12-23] MEDS: DEXTROSE 50% JECT 50 ML DISP.SYRIN IVP PRN (06:43)
[2020-12-23] MEDS: INSULIN GLARGINE 100 UNITS/ML 10 ML VIAL SUBCUT SCH ×2 (09:00→21:00)
[2020-12-23] MEDS ORDERED: FAMOTIDINE PF 20 MG/2 ML VIAL ONE (09:39)
[2020-12-23] MEDS: DOCUSATE SODIUM 100 MG CAPSULE PO SCH ×2 (09:39→21:00)
[2020-12-23] MEDS: FAMOTIDINE PF 20 MG/2 ML VIAL IVP SCH ×2 (09:39→23:18)
[2020-12-23] MEDS: ASCORBIC ACID 500 MG TABLET PO SCH ×2 (09:39→23:19)
[2020-12-23] MEDS: metroNIDAZOLE 500 mg/NS 100 ML IV SCH ×2 (09:39→21:00)
[2020-12-23] MEDS: CHOLECALCIFEROL (VITAMIN D3) 5,000 UNIT TABLET PO SCH (09:39)
[2020-12-23] MEDS: ENOXAPARIN SODIUM 40 MG/0.4 ML SYRINGE SUBCUT SCH ×2 (09:40→21:00)
--- NOTE | 2020-12-23 09:40 | NUR ---
Called Dr. Landeros with a consult, spoke with Julissa from doctors office
[2020-12-23] MEDS: BALSAM PERU/CASTOR OIL 60 GM OINT...G. TP SCH (09:49)
--- NOTE | 2020-12-23 10:23 | NUR ---
Dr Arredondo told and showed ABG results. O 2 bumped up to 90% and no changes outside of that. Confirms the patient needs dialysis to fix acidosis. Dr Landeros to come in later to place IJ tong cathetter and dialysis scheduled for later today
[2020-12-23] MEDS: CEFEPIME 0.5 GM in D5W 50 ML IV SCH (12:14)
[2020-12-23] MEDS: MICAFUNGIN SODIUM 100 MG in NS 100 ML IV SCH (13:40)
--- NOTE | 2020-12-23 15:28 | NUR ---
Nutrition F/U RD reviewed pt's current EMR record including diet Hx, physician notes, nursing notes, pertinent labs/meds/procedures, care trends, and care activity. Admission Dx: Acute respiratory failure PMH: HTN, DM, dementia, DJD per physician notes Pt also found w/ COVID-19 pneumonia, sepsis, and complicated UTI per physician notes SARS-CoV-2 Ag (Rapid) Negative 12/09/20 Current Diet Order/Nutrition Support: Glucerna 1.2 at 40 ml/hr, Free Water Flush: 0 ml via NGT x3 days Subjective Info: Surge charting d/t high RD pt load. RD spoke w/ plastic surgery nurse as pt's primary RN was at bedside w/ a different pt. RD relayed rec for TF goal rate. Per EMR review, pt is pending IJ Marek catheter placement by surgeon for dialysis; abd is distended and firm w/ active bowel sounds; last BM x1 12/22. Pt is not yet meeting nutritional needs. Pertinent Medications: Haldol, Piperacillin/tazobactam, Zinc, VIT D, Colace, Senna, VIT C, Lovenox, insulin drip, propofol at 11.2 ml/hr (296 kcal/day), SSI, solu-medrol Pertinent Labs: 12/22: Na 140 WNL, K 3.8 WNL, BG 186 H, POC BG 140 H, BUN 85 H, CRE 3.99 H, WBC 24.4 H Height: 5'10" Weight: 150#/68 kg (12/11/20); NEW WT: 165#/74.8 kg (12/17/20) -- note 15# wt change; unsure of reliability Skin Integrity Comment: South scale of 8; per [employer]ophone As[employer]er note 12/17/20: stage 2 PI to left and R buttocks noted Estimated Energy Expenditure (kcals/day) 2899-5555 kcal/day (25-30 kcal/kg CBW d/t critical care, BMI <30 kg/m2) NEW Estimated Protein Required (g/day) 82-136 gm/day (1.2-2 gm/kg CBW d/t critical care, BMI <30 kg/m2, wound healing, impaired renal function, dialysis) NEW Estimated Fluid Required (l/day) Per physician d/t impaired renal function and need for dialysis Problem/Etiology/Signs/Symptoms Suboptimal nutritional intakes related to breathing difficulty and wound healing as evidenced by RN report of poor PO intakes and wound to L buttock. *ongoing Expected Outcomes/Goals *MODIFIED* - Monitor EN tolerance and PO intakes w/ goal of pt meeting at least 75% of estimated nutritional needs, labs trending WNL, normal GI function, and skin integrity/wt maintenance Dietitian Recommendations * Recommend Glucerna 1.2 at 60 ml/hr (goal rate), Melquiades BID, Free Water Flush: 150 ml Q6h via NGT Provides (w/ current propofol infusion rate): 2184 kcal/day, 91 gm protein/day, and 1759 ml free water/day Meets: 107% of upper end of estimated caloric needs and 111% of lower end of estimated protein needs Follow Up High Risk: F/U in 2-3 days Addendum: 12/23/20 at [address] Nuñez RD CORRECTION: Dietitian Recommendations * Recommend Glucerna 1.2 at 60 ml/hr (goal rate), Melquiades BID via NGT Provides (w/ current propofol infusion rate): 2184 kcal/day, 91 gm protein/day, and 1159 ml free water/day Meets: 107% of upper end of estimated caloric needs and 111% of lower end of estimated protein needs * Free Water Flush per physician LP, RD Please refer to Nutrition F/U for details.
--- NOTE | 2020-12-23 15:38 | NUR ---
Dietitian Recommendations * Recommend Glucerna 1.2 at 60 ml/hr (goal rate), Melquiades BID, Free Water Flush: 150 ml Q6h via NGT Provides (w/ current propofol infusion rate): 2184 kcal/day, 91 gm protein/day, and 1759 ml free water/day Meets: 107% of upper end of estimated caloric needs and 111% of lower end of estimated protein needs LP, RD Please refer to Nutrition F/U for details. Addendum: 12/23/20 at 1542 [address] Sarah Nuñez RD CORRECTION: Dietitian Recommendations * Recommend Glucerna 1.2 at 60 ml/hr (goal rate), Melquiades BID via NGT Provides (w/ current propofol infusion rate): 2184 kcal/day, 91 gm protein/day, and 1159 ml free water/day Meets: 107% of upper end of estimated caloric needs and 111% of lower end of estimated protein needs * Free Water Flush per physician LP, RD Please refer to Nutrition F/U for details.
[2020-12-23] MEDS ORDERED: HEPARIN SODIUM,PORCINE 5,000 UNITS/ML VIAL ONE (18:11)
--- NOTE | 2020-12-23 20:30 | NUR ---
DR AKERS CAME AND INSERTED A RT IJ CLIVE CATH, SITE IS BLEEDING AND ANOTHER PUNCTURE SITE ON THE SIDE. 2200 REINFORCE DRESSING BUT STILL REMAINS BLEEDING.
[2020-12-23] MEDS: SENNOSIDES 8.6 MG TABLET PO SCH (21:00)
[2020-12-23] MEDS ORDERED: metroNIDAZOLE 500 mg/NS 100 ML IV ONE (23:31)
[2020-12-24] VITALS (31 sets, daily range): BP systolic 89–144
[2020-12-24] MEDS: ALBUTEROL MDI INHALATION 8 GM INH INH SCH ×4 (00:51→10:58)
[2020-12-24] MEDS: methylPREDNISolone SOD SUCC/PF 62.5 MG/ML VIAL IVP SCH ×4 (01:33→18:15)
[2020-12-24] MEDS: NACL 0.9% 1,000 ML IV SCH ×2 (02:00→22:00)
[2020-12-24] MEDS: PROPOFOL DRIP 100 ML IV PRN ×4 (02:08→18:18)
--- NOTE | 2020-12-24 05:00 | NUR ---
AGAIN COMPLETE BED BATH FOR SECOND TIME DONE HIS BLEEDING ON THE HD SITE GROSS BLEEDING DRESSING TO THE SITE REINFORCE AND PATIENT CLEANED AND KEPT DRY AND INTACT.
[2020-12-24] MEDS: THEOPHYLLINE ANHYDROUS 200 MG TAB.SR.12H PO SCH ×3 (06:33→20:53)
[2020-12-24 06:48] LABS: HEMATOCRIT 28.4 % (36-54); HEMOGLOBIN 9.8 g/dL (14.0-18.0); MEAN CORPUSCULAR HEMOGLOBIN 32 pg (27-31); MEAN CORPUSCULAR HGB CONC 35 % (32-36); MEAN CORPUSCULAR VOLUME 93 fL (79.0-98.0); RED BLOOD CELL COUNT(AUTO) 3.04 MIL/uL (4.2-6.2); RED CELL DISTRIBUTION WIDTH 13.6 % (9.0-15.0); WHITE BLOOD COUNT (AUTO) 23.3 K/uL (4.8-10.8)
[2020-12-24 07:20] LABS: ALANINE AMINOTRANSFERASE 101 U/L (12-78); ALBUMIN 1.8 g/dL (3.4-4.8); ANION GAP 19 (5-15); ASPARTATE AMINOTRANSFERASE 57 U/L (10-37); CHLORIDE 101 mmol/L (98-107); GLUCOSE 211 mg/dL (70-99); POTASSIUM 4.3 mmol/L (3.5-5.1); SODIUM SERUM 140 mmol/L (136-145); TOTAL BILIRUBIN 1.3 mg/dL (0.0-1.0)
[2020-12-24 07:33] LABS: CALCIUM 6.7 mg/dL (8.4-11.0); UREA NITROGEN, BLOOD 113 mg/dL (8-21)
[2020-12-24 08:10] LABS: PLATELET COUNT (AUTO) 45 K/uL (130-430)
[2020-12-24] MEDS: ENOXAPARIN SODIUM 40 MG/0.4 ML SYRINGE SUBCUT SCH ×2 (09:00→20:53)
[2020-12-24] MEDS: DOCUSATE SODIUM 100 MG CAPSULE PO SCH ×2 (09:00→20:50)
[2020-12-24] MEDS: BALSAM PERU/CASTOR OIL 60 GM OINT...G. TP SCH (09:00)
[2020-12-24 09:14] LABS: VANCOMYCIN,RANDOM 17.1 ug/mL
--- NOTE | 2020-12-24 09:50 | NUR ---
patient transfer to bed 7.
[2020-12-24] MEDS: metroNIDAZOLE 500 mg/NS 100 ML IV SCH ×2 (09:55→20:49)
[2020-12-24] MEDS: ASCORBIC ACID 500 MG TABLET PO SCH ×2 (09:56→20:51)
[2020-12-24] MEDS: CHOLECALCIFEROL (VITAMIN D3) 5,000 UNIT TABLET PO SCH (09:56)
[2020-12-24] MEDS ORDERED: FAMOTIDINE PF 20 MG/2 ML VIAL ONE ×2 (10:01→20:37)
[2020-12-24] MEDS: INSULIN GLARGINE 100 UNITS/ML 10 ML VIAL SUBCUT SCH ×2 (10:01→20:52)
[2020-12-24] MEDS: FAMOTIDINE PF 20 MG/2 ML VIAL IVP SCH ×2 (10:02→20:50)
--- NOTE | 2020-12-24 12:21 | NUR ---
Titrate morphine to 5 mg/hr. wintnessed by adrian titus.
[2020-12-24] MEDS: MICAFUNGIN SODIUM 100 MG in NS 100 ML IV SCH (12:51)
[2020-12-24] MEDS: CEFEPIME 0.5 GM in D5W 50 ML IV SCH (12:51)
--- NOTE | 2020-12-24 13:03 | NUR ---
titrate levophed 1 mcg/kg/min bp 83/43 hr 72. saturation 94%.
--- NOTE | 2020-12-24 14:10 | NUR ---
TITRATE LEVOPHED TO 0.08MCG/KG/MIN BLOOD PRESSURE 135/72, PULSE 65.
--- NOTE | 2020-12-24 14:30 | NUR ---
PT HEART RATE IS > 40BPM. TITRATE DIPRIVAN TO 35MCG/KG/MIN. WITNESSED BY STEPH BROOKS.
--- NOTE | 2020-12-24 15:00 | NUR ---
NOTES: SPONGE BATH AND ISAIAS CARE PROVIDED.CHEST TUBE CONTAINER TILT AND BLOOD DRAINAGE WENT TO WATER SEAL. PT IS NOT IN DISTRESS. VITAL SIGN STABLE. CHARGE NURSE INFORMED AND RECOMMEND TO CHANGE CHEST TUBE CONTAINER. INSTRUCTION PROTOCOL FOLLOWED.
[2020-12-24 15:03] LABS: BAND % (MANUAL) 11 % (0-6); LYMPHOCYTES % (MANUAL) 0 % (20-46); MONOCYTES % (MANUAL) 0 % (0-11)
[2020-12-24 15:04] LABS: BASOPHILS % (MANUAL) 0 % (0-2); EOSINOPHILS % (MANUAL) 0 % (0-7); WBC MORPHOLOGY TOXIC GRANULATION
--- NOTE | 2020-12-24 16:45 | NUR ---
TITRATE LEVOPHED TO 0.12MCG/KG/MIN, BP 76/34. PULSE 72, WITNESSED BY CRIS BROOKS.
--- NOTE | 2020-12-24 18:03 | NUR ---
bp dropto 70/34,during dialysis,increase levophedto 0.22mcg/kg/min.was witnessedby adrian titus.
[2020-12-24] MEDS: SENNOSIDES 8.6 MG TABLET PO SCH (20:50)
[2020-12-25] VITALS (27 sets, daily range): BP systolic 101–147
[2020-12-25] MEDS: methylPREDNISolone SOD SUCC/PF 62.5 MG/ML VIAL IVP SCH ×4 (00:44→17:53)
[2020-12-25] MEDS: INSULIN REGULAR, HUMAN 100 UNITS/ML, 10 ML VIAL (humuLIN R) SUBCUT PRN ×3 (00:47→17:54)
[2020-12-25] MEDS: PROPOFOL DRIP 100 ML IV PRN ×2 (04:43→12:45)
[2020-12-25] MEDS: ALBUTEROL MDI INHALATION 8 GM INH INH SCH ×5 (06:00→19:00)
[2020-12-25] MEDS: THEOPHYLLINE ANHYDROUS 200 MG TAB.SR.12H PO SCH ×3 (06:23→22:17)
--- NOTE | 2020-12-25 06:42 | NUR ---
S/B DR. Loaiza and DR. Barry last night no new orders, aware of current tx and care, VSS on levophed low dose, sedated with diprivan ,on tube feeding tolerating still having diarrhea. rectal tube in place. Oliguric, cont care.
[2020-12-25] MEDS: metroNIDAZOLE 500 mg/NS 100 ML IV SCH ×2 (09:28→21:08)
[2020-12-25] MEDS: DOCUSATE SODIUM 100 MG CAPSULE PO SCH ×2 (09:29→21:14)
[2020-12-25] MEDS: ASCORBIC ACID 500 MG TABLET PO SCH ×2 (09:29→21:14)
[2020-12-25] MEDS: CHOLECALCIFEROL (VITAMIN D3) 5,000 UNIT TABLET PO SCH (09:29)
[2020-12-25] MEDS: BALSAM PERU/CASTOR OIL 60 GM OINT...G. TP SCH (09:30)
[2020-12-25] MEDS: ENOXAPARIN SODIUM 40 MG/0.4 ML SYRINGE SUBCUT SCH ×2 (09:30→21:15)
[2020-12-25] MEDS: FAMOTIDINE PF 20 MG/2 ML VIAL IVP SCH ×2 (09:39→21:13)
[2020-12-25] MEDS ORDERED: FAMOTIDINE PF 20 MG/2 ML VIAL ONE (09:40)
[2020-12-25] MEDS: NOREPINEPHRINE BITARTRATE 16 MG in D5W 234 ML IV PRN ×2 (10:06→21:22)
[2020-12-25] MEDS: INSULIN GLARGINE 100 UNITS/ML 10 ML VIAL SUBCUT SCH ×2 (10:13→21:00)
[2020-12-25] MEDS: INSULIN REGULAR, HUMAN 100 UNITS in NS 99 ML IV PRN ×2 (12:41)
[2020-12-25] MEDS: CEFEPIME 0.5 GM in D5W 50 ML IV SCH (12:46)
[2020-12-25] MEDS: MICAFUNGIN SODIUM 100 MG in NS 100 ML IV SCH (13:40)
[2020-12-25] MEDS ORDERED: HEPARIN SODIUM,PORCINE 5,000 UNITS/ML VIAL SUBCUT ONE (16:45)
[2020-12-25] MEDS ORDERED: HEPARIN SODIUM,PORCINE 5,000 UNITS/ML VIAL ONE (17:12)
[2020-12-25] MEDS: NACL 0.9% 1,000 ML IV SCH (18:00)
[2020-12-25] MEDS: SENNOSIDES 8.6 MG TABLET PO SCH (21:14)
[2020-12-25] MEDS: HEPARIN SODIUM,PORCINE 5,000 UNITS/ML VIAL SUBCUT SCH (21:16)
[2020-12-26] VITALS (26 sets, daily range): BP systolic 115–162
[2020-12-26] MEDS: methylPREDNISolone SOD SUCC/PF 62.5 MG/ML VIAL IVP SCH ×4 (00:05→18:20)
[2020-12-26] MEDS: ALBUTEROL MDI INHALATION 8 GM INH INH SCH ×3 (01:00→19:00)
[2020-12-26] MEDS: PROPOFOL DRIP 100 ML IV PRN ×2 (01:21→11:41)
[2020-12-26] MEDS: HEPARIN SODIUM,PORCINE 5,000 UNITS/ML VIAL SUBCUT SCH ×3 (06:00→21:46)
[2020-12-26] MEDS ORDERED: methylPREDNISolone SOD SUCC/PF 62.5 MG/ML VIAL ONE (06:25)
[2020-12-26] MEDS: THEOPHYLLINE ANHYDROUS 200 MG TAB.SR.12H PO SCH ×3 (06:42→21:46)
[2020-12-26 07:09] LABS: ALANINE AMINOTRANSFERASE 84 U/L (12-78); ALBUMIN 1.8 g/dL (3.4-4.8); ANION GAP 14 (5-15); ASPARTATE AMINOTRANSFERASE 36 U/L (10-37); CHLORIDE 102 mmol/L (98-107); CREATININE 3.91 mg/dL (0.55-1.30); GLUCOSE 106 mg/dL (70-99); POTASSIUM 4.6 mmol/L (3.5-5.1); SODIUM SERUM 139 mmol/L (136-145); TOTAL BILIRUBIN 0.6 mg/dL (0.0-1.0); UREA NITROGEN, BLOOD 82 mg/dL (8-21)
[2020-12-26 07:42] LABS: HEMATOCRIT 25.6 % (36-54); HEMOGLOBIN 8.5 g/dL (14.0-18.0); MEAN CORPUSCULAR HEMOGLOBIN 31 pg (27-31); MEAN CORPUSCULAR HGB CONC 33 % (32-36); MEAN CORPUSCULAR VOLUME 95 fL (79.0-98.0); RED BLOOD CELL COUNT(AUTO) 2.71 MIL/uL (4.2-6.2); RED CELL DISTRIBUTION WIDTH 13.8 % (9.0-15.0)
[2020-12-26 07:43] LABS: CALCIUM 6.8 mg/dL (8.4-11.0)
[2020-12-26 08:32] LABS: VANCOMYCIN,RANDOM 9.8 ug/mL
[2020-12-26 08:48] LABS: PLATELET COUNT (AUTO) 42 K/uL (130-430); WHITE BLOOD COUNT (AUTO) 33.3 K/uL (4.8-10.8)
[2020-12-26] MEDS: ENOXAPARIN SODIUM 40 MG/0.4 ML SYRINGE SUBCUT SCH ×2 (09:00→21:00)
[2020-12-26] MEDS ORDERED: FAMOTIDINE PF 20 MG/2 ML VIAL ONE ×2 (09:04→21:31)
[2020-12-26] MEDS: ASCORBIC ACID 500 MG TABLET PO SCH ×2 (09:07→21:40)
[2020-12-26] MEDS: CHOLECALCIFEROL (VITAMIN D3) 5,000 UNIT TABLET PO SCH (09:07)
[2020-12-26] MEDS: FAMOTIDINE PF 20 MG/2 ML VIAL IVP SCH ×2 (09:07→21:38)
[2020-12-26] MEDS: BALSAM PERU/CASTOR OIL 60 GM OINT...G. TP SCH (09:07)
[2020-12-26] MEDS: DOCUSATE SODIUM 100 MG CAPSULE PO SCH ×2 (09:07→21:39)
[2020-12-26] MEDS: metroNIDAZOLE 500 mg/NS 100 ML IV SCH ×2 (09:07→21:38)
[2020-12-26] MEDS: INSULIN GLARGINE 100 UNITS/ML 10 ML VIAL SUBCUT SCH ×2 (09:38→21:00)
[2020-12-26] MEDS ORDERED: VANCOMYCIN HCL 1,000 MG in NS 250 ML IV ONE (11:00)
[2020-12-26] MEDS: CEFEPIME 0.5 GM in D5W 50 ML IV SCH (12:19)
[2020-12-26] MEDS: MICAFUNGIN SODIUM 100 MG in NS 100 ML IV SCH (13:19)
[2020-12-26 14:33] LABS: BAND % (MANUAL) 6 % (0-6); BASOPHILS % (MANUAL) 0 % (0-2); EOSINOPHILS % (MANUAL) 0 % (0-7); LYMPHOCYTES % (MANUAL) 2 % (20-46); MONOCYTES % (MANUAL) 4 % (0-11)
[2020-12-26] MEDS: NACL 0.9% 1,000 ML IV SCH (14:57)
--- NOTE | 2020-12-26 16:59 | NUR ---
CONSULTATION PAGED/CALLED Reason for Consultation: [] THROMBOCYTOPENIA Person Who was Notified: [] MERYL Consulting Physician: [] DR Robson FRIAS [employer] Insurance Agent Specialty: [] ONCO/COURTNEY Ordering Physician: [] DR Robson CARRANZA
--- NOTE | 2020-12-26 17:06 | NUR ---
Nutrition F/U RD reviewed pt's current EMR record including diet Hx, physician notes, nursing notes, pertinent labs/meds/procedures, care trends, and care activity. Admission Dx: Acute respiratory failure PMH: HTN, DM, dementia, DJD per physician notes Pt also found w/ COVID-19 pneumonia, sepsis, and complicated UTI per physician notes SARS-CoV-2 Ag (Rapid) Negative 12/09/20 Current Diet Order/Nutrition Support: Glucerna 1.2 at 60 ml/hr, Free Water Flush: per physician via NGT x3 days Subjective Info: Surge charting d/t high RD pt load. Pt remains intubated, now w/ IJ hemodialysis catheter placement per review EMR. 1+ generalized edema noted. RD unable to reach RN to discuss provision of TF, RD extension was given to ICU staff w/ instruction for RN to call RD back when available. Per review of EMR, Glucerna 1.2 at 60ml/hr is enfusing, GRV at 10ml 12/25, abd non-distended. Per RN shift notes, pt tolerating rate, but having diarrhea, now w/ rectal tube in place --300ml stool output 12/25. Diarrhea may be r/t abx or TF intolerance; pt would benefit from a change to TF to Vital AF 1.2 at 50ml/hr. W/ Propofol and Melquiades BID, this will meet 92% of upper end of calorie and 113% of lower end of protein needs. Pertinent Medications: Haldol, Piperacillin/tazobactam, Zinc, VIT D, Colace, Senna, VIT C, Lovenox, insulin drip, propofol at 8.98 ml/hr (237 kcal/day), SSI, solu-medrol Pertinent Labs: 12/26: Na 139 WNL, K 4.6 WNL, BG 106 H, POC BG 117 H, BUN 82 H, CRE 3.91 H, WBC 33.3 H Height: 5'10" Weight: 150#/68 kg (12/11/20); NEW WT: 165#/74.8 kg (12/17/20) -- note 15# wt change; unsure of reliability Skin Integrity Comment: South scale of 8; per [employer] note 12/17/20: stage 2 PI to left and R buttocks noted Estimated Energy Expenditure (kcals/day) 1182-0251 kcal/day (25-30 kcal/kg CBW d/t critical care, BMI <30 kg/m2) NEW Estimated Protein Required (g/day) 82-136 gm/day (1.2-2 gm/kg CBW d/t critical care, BMI <30 kg/m2, wound healing, impaired renal function, dialysis) NEW Estimated Fluid Required (l/day) Per physician d/t impaired renal function and need for dialysis Problem/Etiology/Signs/Symptoms Suboptimal nutritional intakes related to breathing difficulty and wound healing as evidenced by RN report of poor PO intakes and wound to L buttock. *ongoing Altered GI function r/t TF intolerance vs abx effect AEB pt w/ rectal tube d/t diarrhea per EMR *new Expected Outcomes/Goals *MODIFIED* - Monitor EN tolerance w/ goal of pt meeting at least 75% of estimated nutritional needs, labs trending WNL, normal GI function, and skin integrity/wt maintenance Dietitian Recommendations * Consider Vital AF 1.2 at 50ml/hr and Melquiades BID via NGT Provides (w/ current propofol infusion rate): 1867 kcal/day, 95 gm protein/day, and 1071 ml free water/day Meets: 92% of upper end of estimated caloric needs and 113% of lower end of estimated protein needs * Free Water Flush per physician Follow Up High Risk: F/U in 2-3 days
--- NOTE | 2020-12-26 17:09 | NUR ---
Dietitian Recommendations * Consider Vital AF 1.2 at 50ml/hr and Melquiades BID via NGT Provides (w/ current propofol infusion rate): 1867 kcal/day, 95 gm protein/day, and 1071 ml free water/day Meets: 92% of upper end of estimated caloric needs and 113% of lower end of estimated protein needs * Free Water Flush per physician Please see Nutrition F/U for further details. LT, RD
[2020-12-26] MEDS: NOREPINEPHRINE BITARTRATE 16 MG in D5W 234 ML IV PRN (18:18)
[2020-12-26] MEDS: SENNOSIDES 8.6 MG TABLET PO SCH (21:40)
[2020-12-27] VITALS (27 sets, daily range): BP systolic 81–147
[2020-12-27] MEDS: methylPREDNISolone SOD SUCC/PF 62.5 MG/ML VIAL IVP SCH ×2 (00:13→05:07)
[2020-12-27] MEDS: ALBUTEROL MDI INHALATION 8 GM INH INH SCH ×4 (01:00→19:20)
[2020-12-27] MEDS: PROPOFOL DRIP 100 ML IV PRN ×2 (03:16→18:55)
[2020-12-27] MEDS: DEXTROSE 50% JECT 50 ML DISP.SYRIN IVP PRN ×2 (04:29→12:29)
[2020-12-27] MEDS: HEPARIN SODIUM,PORCINE 5,000 UNITS/ML VIAL SUBCUT SCH ×3 (05:00→21:59)
[2020-12-27] MEDS: THEOPHYLLINE ANHYDROUS 200 MG TAB.SR.12H PO SCH ×3 (05:01→21:59)
--- NOTE | 2020-12-27 05:35 | NUR ---
FAMILY ATTEMPTED TO BE CONTACTED FOR CONSENT OF ADMINISTRATION OF PLT. MULTIPLE ATTEMPTS MADE WITH NO ANSWER. VOICEMAIL LEFT. WILL AWAIT CALL BACK.
[2020-12-27 06:39] LABS: BASOPHILS # (AUTO) 0.3 K/uL (0.0-0.2); BASOPHILS % (AUTO) 1.3 % (0.0-2.0); EOSINOPHILS # (AUTO) 0.1 K/uL (0.0-0.4); EOSINOPHILS % (AUTO) 0.2 % (0.0-4.0); HEMATOCRIT 23.9 % (36-54); HEMOGLOBIN 7.9 g/dL (14.0-18.0); LYMPHOCYTES # (AUTO) 0.5 K/uL (1.0-5.5); LYMPHOCYTES % (AUTO) 2.2 % (20.5-51.5); MEAN CORPUSCULAR HEMOGLOBIN 32 pg (27-31); MEAN CORPUSCULAR HGB CONC 33 % (32-36); MEAN CORPUSCULAR VOLUME 96 fL (79.0-98.0); MONOCYTES # (AUTO) 0.1 K/uL (0.0-1.0); MONOCYTES % (AUTO) 0.6 % (1.7-9.3); NEUTROPHILS # (AUTO) 24.1 K/uL (1.8-7.7); NEUTROPHILS % (AUTO) 95.7 % (40.0-70.0); RED BLOOD CELL COUNT(AUTO) 2.49 MIL/uL (4.2-6.2); RED CELL DISTRIBUTION WIDTH 13.6 % (9.0-15.0); WHITE BLOOD COUNT (AUTO) 25.2 K/uL (4.8-10.8)
[2020-12-27 06:51] LABS: INR 0.9 (0.80-1.20); PROTHROMBIN TIME 9.6 SECS (9.5-12.5)
[2020-12-27 06:56] LABS: ALANINE AMINOTRANSFERASE 68 U/L (12-78); ALBUMIN 1.8 g/dL (3.4-4.8); ANION GAP 14 (5-15); ASPARTATE AMINOTRANSFERASE 35 U/L (10-37); CHLORIDE 101 mmol/L (98-107); CREATININE 4.79 mg/dL (0.55-1.30); GLUCOSE 97 mg/dL (70-99); POTASSIUM 5.1 mmol/L (3.5-5.1); SODIUM SERUM 138 mmol/L (136-145); TOTAL BILIRUBIN 0.8 mg/dL (0.0-1.0)
[2020-12-27 07:45] LABS: CALCIUM 6.5 mg/dL (8.4-11.0); UREA NITROGEN, BLOOD 109 mg/dL (8-21)
[2020-12-27 08:09] LABS: VANCOMYCIN,RANDOM 18.7 ug/mL
[2020-12-27 08:42] LABS: PLATELET COUNT (AUTO) 41 K/uL (130-430)
[2020-12-27] MEDS: metroNIDAZOLE 500 mg/NS 100 ML IV SCH ×2 (08:42→21:18)
[2020-12-27] MEDS: DOCUSATE SODIUM 100 MG CAPSULE PO SCH ×2 (08:42→21:19)
[2020-12-27] MEDS: CHOLECALCIFEROL (VITAMIN D3) 5,000 UNIT TABLET PO SCH (08:43)
[2020-12-27] MEDS: ASCORBIC ACID 500 MG TABLET PO SCH ×2 (08:43→21:19)
[2020-12-27] MEDS: BALSAM PERU/CASTOR OIL 60 GM OINT...G. TP SCH (08:43)
[2020-12-27] MEDS: FAMOTIDINE PF 20 MG/2 ML VIAL IVP SCH (08:59)
[2020-12-27] MEDS ORDERED: FAMOTIDINE PF 20 MG/2 ML VIAL ONE (09:00)
[2020-12-27] MEDS: ENOXAPARIN SODIUM 40 MG/0.4 ML SYRINGE SUBCUT SCH ×2 (09:00→21:00)
[2020-12-27] MEDS: INSULIN GLARGINE 100 UNITS/ML 10 ML VIAL SUBCUT SCH ×2 (09:00→21:58)
[2020-12-27] MEDS: NACL 0.9% 1,000 ML IV SCH (10:00)
[2020-12-27] MEDS: DEXAMETHASONE SOD PHOSPHATE 10 MG/ML VIAL IVP SCH ×2 (12:29→17:48)
[2020-12-27] MEDS: CEFEPIME 0.5 GM in D5W 50 ML IV SCH (12:29)
[2020-12-27] MEDS: MICAFUNGIN SODIUM 100 MG in NS 100 ML IV SCH (13:03)
[2020-12-27] MEDS ORDERED: HEPARIN SODIUM, PORCINE 10,000 UNITS/ 10 ML VIAL MC ONE (16:15)
[2020-12-27] MEDS ORDERED: SUCRALFATE 1 GM/10 ML UDC GT SCH (17:00)
[2020-12-27] MEDS: SENNOSIDES 8.6 MG TABLET PO SCH (21:19)
[2020-12-27] MEDS ORDERED: NOREPINEPHRINE 4 MG/4 ML VIAL IV ONE ×2 (23:11→23:15)
[2020-12-27] MEDS: NOREPINEPHRINE BITARTRATE 16 MG in D5W 234 ML IV PRN (23:19)
[2020-12-28] MEDS: DEXAMETHASONE SOD PHOSPHATE 10 MG/ML VIAL IVP SCH
[2020-12-28 00:22] VITALS: BP_SYST 144
[2020-12-28] MEDS: ALBUTEROL MDI INHALATION 8 GM INH INH SCH (00:22)
--- NOTE | 2020-12-28 01:15 | NUR ---
PAGED FOR ORDERS DIALED: [phone] SPOKE TO: TO
[2020-12-28] MEDS ORDERED: PHENYLEPHRINE HCL 10 MG/ML VIAL (NEOSYNEPHRINE) ONE (01:25)
[2020-12-28] MEDS ORDERED: PHENYLEPHRINE HCL 100 MG in NS 240 ML IV PRN (01:30)
--- NOTE | 2020-12-28 02:25 | NUR ---
RT NOTES CALLED [facility] DUE TO NO PULSE. CPR STARTED @0225. ROSC ACHIEVED @ 0230. CPR STARTED AGAIN @0231 DUE TO NO PULSE. [facility] CALLED @0241. PT .
[2020-12-28] MEDS ORDERED: EPINEPHrine JECT 0.1 MG/ML SYR IVP ONE (02:40)
[2020-12-28] MEDS ORDERED: SODIUM BICARBONATE 8.4% JECT 50 MEQ/50 ML SYRINGE IVP ONE (02:40)
[2020-12-28] MEDS ORDERED: CALCIUM CHLORIDE 1 GM/10 ML DISP.SYRIN (14 mEq Ca++/SYR) IVP ONE (02:40)
--- NOTE | 2020-12-28 02:44 | NUR ---
PATIENT BLOOD PRESURE START DROOPING WE CALL THE DOCTOR AND CHANGE LEVOPHE TO PHENYLEPHRINE BUT THE PATIENT STILL NO BP READING AND NOT PULSE SO WE CALL [facility] AND RUNING TWICE THE [facility] SO AT 2.[address] PRONOUNCED THE PATIENT //
[2020-12-28 03:16] VITALS: BP_SYST 89
--- NOTE | 2020-12-28 03:20 | NUR ---
NOTIFIED OF PT EXPIRATION [phone] -SPOKE TO: BARBRA SWANSON [phone] -SPOKE [facility]: [facility] [phone] SAM FENG PAWAN -SPOKE TO: YUNIEL REYES [phone] -SPOKE: LEFT VOICEMAIL KATHERINE VARGAS [phone] -SPOKE TO: RAMEZ
--- NOTE | 2020-12-28 03:38 | NUR ---
FAMILY MADE MULTIPLE ATTEMPTS TO CONTACT PTS DAUGHTER SYLVIA COTTER AT [phone] TO INFORM HER OF PT EXPIRATION. PHONE GOES STRAIGHT TO VOICEMAIL. MULTIPLE MESSAGES LEFT, WILL AWAIT CALL BACK.
== END 2020-12-28 02:41 | disposition expired | DRG 870 ==
LOC: SED 02:08 → SIC 07:03
PROVIDERS: ADMIT Family Medicine; ATTEND Family Medicine
PROC: 5A0935A Assistance with Respiratory Ventilation, Less than 24 Consecutive Hours, High Flow/Velocity Cannula (ICD-10-PCS; 2020-12-09)
PROC: 5A09457 Assistance with Respiratory Ventilation, 24-96 Consecutive Hours, Continuous Positive Airway Pressure (ICD-10-PCS; 2020-12-10)
PROC: XW13325 Transfusion of Convalescent Plasma (Nonautologous) into Peripheral Vein, Percutaneous Approach, New Technology Group 5 (ICD-10-PCS; 2020-12-11)
PROC: 5A09457 Assistance with Respiratory Ventilation, 24-96 Consecutive Hours, Continuous Positive Airway Pressure (ICD-10-PCS; 2020-12-12)
PROC: 5A09457 Assistance with Respiratory Ventilation, 24-96 Consecutive Hours, Continuous Positive Airway Pressure (ICD-10-PCS; 2020-12-15)
PROC: 5A1955Z Respiratory Ventilation, Greater than 96 Consecutive Hours (ICD-10-PCS; principal; 2020-12-18)
PROC: 5A09357 Assistance with Respiratory Ventilation, Less than 24 Consecutive Hours, Continuous Positive Airway Pressure (ICD-10-PCS; 2020-12-18)
PROC: 0BH17EZ Insertion of Endotracheal Airway into Trachea, Via Natural or Artificial Opening (ICD-10-PCS; 2020-12-18)
PROC: 5A12012 Performance of Cardiac Output, Single, Manual (ICD-10-PCS; 2020-12-18)
PROC: 0W9930Z Drainage of Right Pleural Cavity with Drainage Device, Percutaneous Approach (ICD-10-PCS; 2020-12-18)
PROC: 02HV33Z Insertion of Infusion Device into Superior Vena Cava, Percutaneous Approach (ICD-10-PCS; 2020-12-23)
PROC: B548ZZA Ultrasonography of Superior Vena Cava, Guidance (ICD-10-PCS; 2020-12-23)
PROC: 5A1D70Z Performance of Urinary Filtration, Intermittent, Less than 6 Hours Per Day (ICD-10-PCS; 2020-12-24)
PROC: 5A1D70Z Performance of Urinary Filtration, Intermittent, Less than 6 Hours Per Day (ICD-10-PCS; 2020-12-25)
PROC: 5A1D70Z Performance of Urinary Filtration, Intermittent, Less than 6 Hours Per Day (ICD-10-PCS; 2020-12-27)
DX: A41.9 Sepsis, unspecified organism (principal); J96.01 Acute respiratory failure with hypoxia; U07.1 COVID-19; J12.82 Pneumonia due to coronavirus disease 2019; N17.0 Acute kidney failure with tubular necrosis; R65.21 Severe sepsis with septic shock; J15.9 Unspecified bacterial pneumonia; J44.0 Chronic obstructive pulmonary disease with (acute) lower respiratory infection; N39.0 Urinary tract infection, site not specified; G93.40 Encephalopathy, unspecified; J93.9 Pneumothorax, unspecified; F03.90 Unspecified dementia, unspecified severity, without behavioral disturbance, psychotic disturbance, mood disturbance, and anxiety; M19.90 Unspecified osteoarthritis, unspecified site; B96.1 Klebsiella pneumoniae [K. pneumoniae] as the cause of diseases classified elsewhere; D72.810 Lymphocytopenia; I46.9 Cardiac arrest, cause unspecified; E11.51 Type 2 diabetes mellitus with diabetic peripheral angiopathy without gangrene; E11.40 Type 2 diabetes mellitus with diabetic neuropathy, unspecified; I12.9 Hypertensive chronic kidney disease with stage 1 through stage 4 chronic kidney disease, or unspecified chronic kidney disease; N18.9 Chronic kidney disease, unspecified; E11.22 Type 2 diabetes mellitus with diabetic chronic kidney disease; Z79.1 Long term (current) use of non-steroidal anti-inflammatories (NSAID); Z79.899 Other long term (current) drug therapy; Z79.4 Long term (current) use of insulin; Z91.19 Patient's noncompliance with other medical treatment and regimen
CPT/HCPCS: 36415; 36600; 71045; 71275; 76376; 80048; 80053; 80202-TC; 81000-TC; 82550-TC; 82553-TC; 82803-TC; 82962; 83036; 83605; 83735-TC; 83880; 84100-TC; 84443-TC; 84478-TC; 84484; 85007; 85025; 85027; 85379; 85384-TC; 85610-TC; 85730-TC; 86022; 86140; 86886; 86900; 86901; 87040-TC; 87070-TC; 87086; 87205-TC; 90935; 90937; 92950; 93005; 93971; 94002; 94003; 94640; 94660; 96361; 96365; 96372; 96375; 99285; C1751; J0171; J0456; J0610; J0692; J0696; J1100; J1630; J1644; J1650; J1815; J1940; J2060; J2248; J2370; J2543; J2704; J2930; J3370; J3475; J3480; J3490; J7030; J7050; J7060; Q9967; U0003